=== PATIENT | female | born 1935 | race Caucasian/White ===

== ENCOUNTER 2019-01-21 07:05 | Inpatient (IN) | payer MEDICARE, OTHER ==
[2019-01-21] VITALS (22 sets, daily range): BP systolic 105–184; BP diastolic 45–97
[~2019-01-21] VITALS: Ht 167.6 cm; Wt 70.8 kg
[~2019-01-21 07:05] MED LIST: LISINOPRIL; NORCO 5-325 TA1 EACH PO
[2019-01-21 07:34] LABS: ABSOLUTE BASOPHILS 0.1 thou/uL (0.0-0.2); ABSOLUTE EOSINOPHILS 0.5 thou/uL (0.0-0.7); ABSOLUTE LYMPHOCYTES 1.5 thou/uL (0.8-5.3); ABSOLUTE MONOCYTES 0.6 thou/uL (0.0-1.2); ABSOLUTE NEUTROPHILS 4.9 thou/uL (1.6-8.1); BASOPHILS 1.1 %; EOSINOPHILS 6.1 %; HEMATOCRIT 43.2 % (37.0-47.0); HEMOGLOBIN 14.7 gm/dL (12.0-15.0); LYMPHOCYTES 20.2 %; MCH 29.7 pg (26.0-34.0); MCV 87.2 fL (80.0-100.0); MONOCYTES 7.8 %; MPV 8.5 fl. (7.2-11.1); NUCLEATED RBCS 0 /100WBC; PLATELET COUNT* 252 thou/uL (150-400); POLYS 64.8 %; RBC 4.96 mil/uL (4.20-5.00); RDW-CV 15.5 % (10.5-14.5); WBC 7.6 thou/uL (4.0-11.0)
[2019-01-21 07:45] LABS: ANION GAP 13 mmol/L (7-16); BUN 11 mg/dL (7-18); CALCIUM 8.9 mg/dL (8.5-10.1); CHLORIDE 103 mmol/L (98-107); CO2 24 mmol/L (21-32); CREATININE 0.9 mg/dL (0.6-1.3); GLUCOSE 104 mg/dL (70-99); SODIUM 140 mmol/L (136-145)
[2019-01-21 07:49] LABS: ALBUMIN 3.9 g/dL (3.4-5.0); ALKALINE PHOSPHATASE 116 U/L (46-116); CHOLESTEROL 288 mg/dL (<200); HDL CHOLESTEROL 68 mg/dL (>40); LDL CHOLESTEROL 185 mg/dL (<100); SGOT 38 U/L (15-37); SGPT 28 U/L (30-65); TC:HDL 4.2 Ratio (Not establshd); TOTAL BILIRUBIN 0.5 mg/dL (<0.1-1.0); TOTAL PROTEIN 7.3 g/dL (6.4-8.2); TRIGLYCERIDE 175 mg/dL (<150); VLDL 35 mg/dL (<40)
[2019-01-21 07:50] LABS: SERUM ASSESSMENT Clear
[2019-01-21 07:55] LABS: APTT 23.2 Seconds (25.0-31.3)
[2019-01-21 08:13] LABS: CK-MB MASS 8.9 ng/mL (<0.5-3.6)
--- NOTE | 2019-01-21 13:36 | EKG ---
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 01/21/19 1335 0711 0 Joshua Chery MD, FACC /EPI
--- NOTE | 2019-01-21 13:38 | EKG ---
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 01/21/19 1337 1144 1144 Joshua Chery MD, FACC /EPI
--- NOTE | 2019-01-21 15:06 | CARD ---
[address] [address] CARDIAC CATH REPORT Name: KOBE KRAUSE Room: [address] IN ..#: [id number] Admission: 01/21/19 Attend Phys: Nacho Jimenez MD Discharge: Date of : 33 Report #: [id number] THIS REPORT FOR: //name// APPROVED REPORT Study performed: 01/21/2019 07:23:02 Patient Details Patient Status: In-Patient Room #: The patient is a 83 year-old female Event Personnel Joshua Chery Floor Layer Helper, Jason Johnson Administrative Support Assoc, Sergio Pop MACHINE FANCY STITCHER Scrub, Emma Pathak RTR Scrub, Allyson Gonzalez RTR Monitor, Deloris English RN Typewriter Operator Automatic Procedures Performed Art Access - R femoral artery* Left Heart Cath w/or w/o Coronaries [id number] [facility] [address] w/wo Plasty Single LAD 124998 Hemostasis w/ Angioseal , PTCA with Balloon Angioplasty Indication Abnormal ECG, STEMI , Chest pain Risk Factors Hypercholesterolemia Admission/Lab Medications/Medications given during procedure Glycoprotein IllbIlla Inhibitors, Heparin Unfract., Plavix PO 600 mg, Aggrastat Unknown 6.7 ml, Plavix PO 600 mg, Heparin IV 6000 units Procedure Narrative The patient was brought emergently to the Cardiac Catheterization Laboratory and was prepped and draped in a sterile manner. The right femoral was infiltrated with 2% Lidocaine subcutaneous anesthesia. A 6fr Ultimum Sheath sheath was inserted into the right femoral artery. Coronary angiography was performed using coronary diagnostic catheters. The right coronary system was accessed and visualized with a 6F JR4 catheter. The left coronary system was accessed and visualized with a 6F JL4 catheter. The left ventricle was accessed and visualized with a 6F PIGTAIL catheter. Left ventricular/Aortic Valve gradient assessed via catheter pullback. Left ventriculogram was performed in HAWKINS projection. Closure device was deployed with a 6 [place] [address] CARDIAC CATH REPORT Name: JIMIKOBE Room: [address] IN [facility]#: [id number] Admission: 01/21/19 Attend Phys: Nacho Jimenez MD Discharge: Date of : 33 Report #: [id number] Fr Angioseal STS 6Fr. The patient tolerated the procedure well and there were no complications associated with the procedure. There was no hematoma. PROCEDURE START TIME 08:09/ STOP TIME 09:04. Intraoperative Conscious Sedation NO SEDATION. Fluoro Time: 7.3 minutes Dose: DAP 87777 cGycm2 1272 mGy Contrast Type and Amount: Visipaque 150 ml Coronary Angiography The patient's coronary anatomy is right dominant. Diagnostic Cath Left Main Normal and bifurcates into the LAD and circumflex complex coronary artery. LAD 80% proximal narrowing. Totally occluded in the midportion. Diagonal 1 70% proximal narrowing. Circumflex Normal in the proximal mid and distal portion. OM1 90% stenosis proximally and a moderate size branch. OM2 Mildly plaqued proximally. Right Coronary 40% narrowed proximal. 20% narrowed distally. R PDA Normal in appearance. RPLV Normal in appearance. Left Ventriculography The left ventricle is normal in size with decreased contractility. The left ventricular ejection fraction is estimated to be 40-45%. Left ventricular wall motion abnormalities are present. There is 1+ mitral insufficiency. severe hypokinesis noted of the apex Hemodynamics The aortic pressure is 183/75 mmHg with a mean of 119 mmHg. The left ventricular pressure is 162/10 mmHg with a mean of mmHg. The left ventricular end diastolic pressure is 25 mmHg. There was no gradient across the aortic valve upon pullback. Pullback from the left ventricle to the aorta revealed no gradient across the aortic valve. PCI Technique Lesion Anticoagulation was achieved with Heparin. bolus of iv aggrastat given Percutaneous coronary [place] [address] CARDIAC CATH REPORT Name: KOBE KRAUSE Room: [address] IN [facility]#: [id number] Admission: 01/21/19 Attend Phys: Nacho Jimenez MD Discharge: Date of : 33 Report #: [id number] left anterior descending artery segment. The lesion stenosis prior to intervention was 100% with LINETTE 0 flow. A 6F XB LAD 3.5 Guide Catheter was used to engage the LCA ostium. A IG: BMW 190cm Interventional Guidewire was used to cross the lesion. BALLOON DILATION A Balloon catheter Trek RX 2.5 X 8 was inserted and inflated up to 7.00atm for 19seconds. Repeat angiography revealed the following post-dilatation results: 70% stenosis. Additional Inflation: 5.00atm for 17seconds. Additional Inflation: 9.00atm for 29seconds. After reperfusion of the mid lad, a 90% stenosis was noted of the apical lad STENT DEPLOYMENT A drug-eluting stent Jose Rafael RX Stent 2.25 x 18 mm was inserted and inflated up to 7.00atm for 20seconds. Repeat angiography revealed the following post-stent deployment results: 0% stenosis. Additional Inflation: 8.00atm for 20seconds. Final angiography reveals 0 % stenosis with LINETTE 3 flow. PCI Technique Lesion 2 Percutaneous Coronary Intervention was performed on the distal left anterior descending artery segment. Percutaneous coronary intervention was performed on the distal left anterior descending artery segment. The lesion stenosis prior to intervention was 90% with LINETTE 0 flow. A xblad3.5 Guide Catheter was used to engage the lm ostium. A bmw Interventional Guidewire was used to cross the lesion. Balloon Dilation A Balloon catheter 2.5 x 8 mm was inserted and inflated up to 6atm for 19seconds. Repeat angiography revealed the following post-dilatation results: 60% stenosis. Stent Deployment A drug-eluting stent 2.0 x 12 mm was inserted and inflated up to 8atm for 19seconds. Repeat angiography revealed the following post-stent deployment results: 0% stenosis. Final angiography reveals 0 % stenosis with LINETTE 3 flow. Conclusion 1. 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 2. Mildly elevated left ventricular end-diastolic pressure. [address] [address] CARDIAC CATH REPORT Name: KOBE KRAUSE Room: [address] IN Kimberlee.R.#: [id number] Admission: 01/21/19 Attend Phys: Nacho Jimenez MD Discharge: Date of : 33 Report #: [id number] 3. Mildly decreased left ventricular systolic function with distal anterior and anteroapical hypokinesis. 4. successful placement of 2 drug eluting stents in the mid and distal lad Recommendations Cardiac Rehabilitation Referral Aggressive Medical Therapy Medications Administered Clopidogrel Diagnostic Cath Approved by: Joshua Chery MD Date/Time: <ELECTRONICALLY SIGNED> By: Jason Johnson MD, FACC 01/21/19 1506 1506 1506Daveronica Johnson MD, FACC /INF
--- NOTE | 2019-01-21 17:33 | NUR ---
PATIENT TOLERATING TUBE FEEDING AND TRACH. TRANSFERED OKAYED WITH DR BUSTOS ONLY WEANING TRIALS RECOMENDED. SURGERY DR BEAR OKAYED TRANSFER NO FURTHER NEED FOR SERVICES. DR GARCÍA DISCHARGE ORDERS IN TRANSFER PACKET. PATIENTS ANGIE NOTIFIED OF TRANSFER GIVEN ADRESS AND PHONE NUMBER OF [facility] REPORT CALLED TO JOURDAN DESIR AT [facility] ICU.
--- NOTE | 2019-01-21 18:27 | NUR ---
PATIENT ADMITTED FROM SALESPERSON TERRAZZO TILES EARLIER UP AFTER 6 HOURS CO NAUSEA DIURPHORETIC. EKG DONE NO CHANGE. CALLED TO DR WAGNER EARLIER TROP OF GREATER THAN 200 CALLED. NO NEW ORDERS AT THAT TIME.
[2019-01-22] VITALS (11 sets, daily range): BP systolic 105–145; BP diastolic 31–56
--- NOTE | 2019-01-22 04:52 | NUR ---
ASSUMED CARE AT 1900H, ON ROOM AIR TOLERATED. PT SLEPT AFTER DOSE OF MELATONIN AND BENADRYL. NO CHEST PAIN AND BLEEDING NOTED. CONTINUE MONITORING AND TOWARDS GOAL.
[2019-01-22 04:56] LABS: ABSOLUTE EOSINOPHILS 0.4 thou/uL (0.0-0.7); ABSOLUTE LYMPHOCYTES 1.8 thou/uL (0.8-5.3); ABSOLUTE MONOCYTES 0.9 thou/uL (0.0-1.2); ABSOLUTE NEUTROPHILS 4.9 thou/uL (1.6-8.1); BASOPHILS 0.4 %; EOSINOPHILS 5.1 %; HEMATOCRIT 37.3 % (37.0-47.0); MCH 29.2 pg (26.0-34.0); MCHC 33.5 g/dL (28.0-37.0); MCV 87.1 fL (80.0-100.0); MONOCYTES 11.2 %; MPV 8.2 fl. (7.2-11.1); NUCLEATED RBCS 0 /100WBC; PLATELET COUNT* 213 thou/uL (150-400); POLYS 61.3 %; RBC 4.28 mil/uL (4.20-5.00); RDW-CV 15.2 % (10.5-14.5)
[2019-01-22 04:57] LABS: CALCIUM 8.6 mg/dL (8.5-10.1); CREATININE 0.8 mg/dL (0.6-1.3); POTASSIUM 3.9 mmol/L (3.5-5.1)
[2019-01-22 05:02] LABS: HEMOGLOBIN 12.5 gm/dL (12.0-15.0)
[2019-01-22 05:09] LABS: TROPONIN-I LEVEL 24.24 ng/mL (<0.06)
[2019-01-22] MEDS ORDERED: PRINIVIL5 MG PO (07:15)
[2019-01-22] MEDS ORDERED: NITROGLYCERIN0.4 MG SUBLING (07:15)
[2019-01-22] MEDS ORDERED: CARVEDILOL3.125 MG PO (07:15)
[2019-01-22] MEDS ORDERED: CLOPIDOGREL75 MG PO (07:15)
[2019-01-22] MEDS ORDERED: ASPIR 8181 MG PO (07:15)
[2019-01-22] MEDS ORDERED: LIPITOR80 MG PO (07:15)
--- NOTE | 2019-01-22 11:24 | EKG ---
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: : 1935 Requested By: Jason Johnson Order Number: [id number] Glenn MD: Jason Johnson Measurements Intervals [place] Rate: 83 P: 50 NM: 143 QRS: 34 QRSD: 92 T: 174 QT: 473 QTc: 556 Interpretive Statements Sinus rhythm Abnrm T, probable ischemia, anterolateral lds Minimal ST elevation, anterior leads Prolonged QT interval Compared to ECG 01/21/2019 11:44:20 ST (T wave) deviation now present Prolonged QT interval now present Possible ischemia still present Electronically Signed On 01-22-2019 11:24:17 CDT by Jason Johnson [email or web address] <ELECTRONICALLY SIGNED> By: Jason Johnson MD, FACC 01/22/19 1124 1642 1642 Jason Johnson MD, [facility] /EPI
--- NOTE | 2019-01-22 11:41 | EKG ---
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1935 Requested By: Jason Johnson Order Number: [id number] Reading MD: Jason Johnson Measurements Intervals [place] Rate: 79 P: 63 W[place]: 163 QRS: 13 QRSD: 89 T: 187 QT: 462 QTc: 530 Interpretive Statements Sinus rhythm Abnrm T, probable ischemia, anterolateral lds Prolonged QT interval Compared to ECG 01/21/2019 11:44:20 Possible ischemia still present Electronically Signed On 01-22-2019 11:41:41 CDT by Jason Johnson [email or web address] <ELECTRONICALLY SIGNED> By: Jason Johnson MD, [facility] 01/22/19 1141 0907 0907 Jason Johnson MD, [facility] /EPI
--- NOTE | 2019-01-22 14:15 | CON ---
[address] [address] CONSULTATION Name: KOBE KRAUSE Kika Room: [address] ADM IN M.R.#: [id number] Admission: 01/21/19 Attend Phys: Nacho Jimenez MD Discharge: Date of : 33 Report #: [id number] THIS REPORT FOR: //name// CC: Alphonse Fernandes DATE OF SERVICE: 01/21/2019 CARDIOLOGY CONSULTATION HISTORY OF PRESENT ILLNESS: The patient is an 83-year-old single white female who I was asked to see in the Emergency Room today after she complained of chest pain. The patient has no previous history of heart disease. In fact, she is on no chronic medications. She notes a couple of weeks ago, she had episode of chest pain that did last for a long period. She went to see her doctor, was told there was no evidence of significant problems. However, today, she awoke at 2:00 a.m. with pain in the left side of her chest and left arm. She felt short of breath, diaphoretic, and nauseated. It persisted throughout the night. Finally, at about 5:30 this morning, she had a friend to bring her to the Emergency Room. She was noted to have abnormal ECG. I was asked to see her on an emergent basis. She denied the pain being related to food or coughing. She has had no bleeding. She denies any recent fever. She does note shortness of breath with exertion, occasional skipped heartbeat, but no syncope. PAST MEDICAL HISTORY: She has had previous appendectomy, hysterectomy, cataract extraction. She has no history of hypertension, diabetes, or hyperlipidemia. She is on no medications. FAMILY HISTORY: Mother of heart attack. SOCIAL HISTORY: She is , lives in [place]. 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 No smoking or alcohol abuse. REVIEW OF SYSTEMS: She has had no history of stroke, asthma, peptic ulcer disease, liver disease, kidney disease, cancer, psychiatric illness, chronic skin condition. PHYSICAL EXAMINATION: GENERAL: Elderly female who is lying in bed. She appeared in no distress. VITAL SIGNS: She had a blood pressure of 170/90, pulse is 90. HEENT: She was anicteric. Conjunctivae are pink. Mucous membranes moist. NECK: Veins nondistended. No carotid bruits. CHEST: Clear to auscultation. CARDIOVASCULAR: Regular rate and rhythm, [place] [address] CONSULTATION Name: KOBE KRAUSE Room: [address]#: [id number] Admission: 01/21/19 Attend Phys: Nacho Jimenez MD Discharge: Date of : 33 Report #: [id number] ABDOMEN: Soft. EXTREMITIES: Had no edema. Dorsalis pedis pulse cannot be palpated. SKIN: Cool and dry. NEUROLOGIC: Nonfocal. LABORATORY DATA: ECG showed a sinus rhythm, poor R-wave progression. There is ST segment elevation up to 3 mm in lead V2, V3, and V4, but no reciprocal changes. IMPRESSION AND RECOMMENDATIONS: 1. Possible acute coronary syndrome. Recommend urgent cardiac catheterization. 2. Hypertension. <ELECTRONICALLY SIGNED> By: Jason Johnson MD, FACC 01/22/19 1415 0755 0825Daveronica Johnson MD, FACC /nt
--- NOTE | 2019-01-22 15:41 | NUR ---
MET PT IN ROOM/INTRODUCED SELF AND SERVICES. PT INDEPENDENT WITH [employer] FAMILY AND COMMUNITY SUPPPORTS IN PLACE. NO HISTORY OF IN-HOME SUPPORT PER PT. 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 GRANDSON INTERACTS WITH PATIENT DAILY AND IS HER PRIMARY SUPPORT PERSON. SHE IS ESTRANGED WITH HER DAUGHTER. NO NEEDS FOR DISCHARGE IDENTIFIED AT THIS TIME.
--- NOTE | 2019-01-22 17:27 | NUR ---
PATIENT TRANSFERED TO [facility] NO RESULTS FROM LAXITIVE. DENIES CP OR SOA. PT SEEN BY CARDIAC REHAB. REPORT GIVEN TO DEJON.
--- NOTE | 2019-01-22 17:45 | NUR ---
PATIENT TRANSFER VIA WC TO 233 REPORT GIVEN PRIOR TO TRANSFER SETTLED IN ORIENTED TO AND CALL LIGHT DENIES PAIN
[2019-01-23] VITALS (7 sets, daily range): BP systolic 119–155; BP diastolic 41–70
--- NOTE | 2019-01-23 13:16 | NUR ---
PT A&O X4. VSS. DISCHARGE EDUCATION GIVEN. IV CANNULA'S DC'd. PT LEFT THE UNIT AT 1200 WITH HER GRAND DAUGHTER.
== END 2019-01-23 12:02 | disposition home or self-care (01) | DRG 246 ==
LOC: M.ERS 07:05 → M.CL 07:05 → M.TBA-CV 07:54 → M.ICU 07:54 → M.2W 01-22 17:46
PROVIDERS: Emergency Medicine; Internal Medicine Cardiovascular Disease; ADMIT Internal Medicine
DX: I21.09 ST elevation (STEMI) myocardial infarction involving other coronary artery of anterior wall (principal); I50.21 Acute systolic (congestive) heart failure; I42.9 Cardiomyopathy, unspecified; S50.11XA Contusion of right forearm, initial encounter; E78.00 Pure hypercholesterolemia, unspecified; I11.0 Hypertensive heart disease with heart failure; Z90.710 Acquired absence of both cervix and uterus; Z98.42 Cataract extraction status, left eye; Z98.41 Cataract extraction status, right eye; Z90.49 Acquired absence of other specified parts of digestive tract; Z87.81 Personal history of (healed) traumatic fracture; Z82.49 Family history of ischemic heart disease and other diseases of the circulatory system; X58.XXXA Exposure to other specified factors, initial encounter; Y93.89 Activity, other specified; Y92.89 Other specified places as the place of occurrence of the external cause; Y99.8 Other external cause status; Z79.82 Long term (current) use of aspirin; Z79.899 Other long term (current) drug therapy

== ENCOUNTER 2019-02-07 07:19 | Observation (INO) | payer MEDICARE, OTHER ==
[~2019-02-07] VITALS: Ht 170.2 cm; Wt 65.8 kg
[2019-02-07] VITALS (12 sets, daily range): BP systolic 109–143; BP diastolic 46–80
--- NOTE | ~2019-02-07 | H ---
[address] [address] HISTORY AND PHYSICAL Name: KOBE KRAUSE Room: [address] Alexandre Vega#: [id number] Admission: 02/07/19 Attend Phys: Neal Ardon MD, Discharge: 02/08/19 Date of : 33 Report #: [id number] THIS REPORT FOR: //name// Please refer to the History and Physical performed in the physician's office. By: 0654Medical Records Staff GARCIA /LONG
[~2019-02-07 07:19] MED LIST changes: +ASPIR 8181 MG PO; +CARVEDILOL3.125 MG PO; +CLOPIDOGREL75 MG PO; +LIPITOR80 MG PO; +NITROGLYCERIN0.4 MG SUBLING; +PRINIVIL5 MG PO
[2019-02-07 08:20] LABS: HEMATOCRIT 40.5 % (37.0-47.0); HEMOGLOBIN 13.6 gm/dL (12.0-15.0); MCH 29.3 pg (26.0-34.0); MCHC 33.5 g/dL (28.0-37.0); MCV 87.6 fL (80.0-100.0); MPV 8.3 fl. (7.2-11.1); RBC 4.63 mil/uL (4.20-5.00); RDW-CV 15.6 % (10.5-14.5); WBC 7.7 thou/uL (4.0-11.0)
[2019-02-07 08:28] LABS: ANION GAP 11 mmol/L (7-16); BUN 15 mg/dL (7-18); CHLORIDE 103 mmol/L (98-107); CO2 25 mmol/L (21-32); GLUCOSE 95 mg/dL (70-99); POTASSIUM 4.1 mmol/L (3.5-5.1); SODIUM 139 mmol/L (136-145)
[2019-02-07 08:33] LABS: ALBUMIN 3.7 g/dL (3.4-5.0); ALKALINE PHOSPHATASE 127 U/L (46-116); CHOLESTEROL 119 mg/dL (<200); HDL CHOLESTEROL 50 mg/dL (>40); LDL CHOLESTEROL 40 mg/dL (<100); SGOT 50 U/L (15-37); SGPT 46 U/L (30-65); TC:HDL 2.4 Ratio (Not establshd); TOTAL BILIRUBIN 0.7 mg/dL (<0.1-1.0); TOTAL PROTEIN 7.2 g/dL (6.4-8.2); TRIGLYCERIDE 147 mg/dL (<150); VLDL 29 mg/dL (<40)
[2019-02-07 08:36] LABS: SERUM ASSESSMENT Clear
[2019-02-07 08:49] LABS: APTT 22.9 Seconds (25.0-31.3); PROTIME 10.7 Seconds (9.20-11.50)
--- NOTE | 2019-02-07 14:37 | EKG ---
[place] [address] ELECTROCARDIOGRAM REPORT Name: KOBE KRAUSE Room: [address] M.R.#: [id number] Admission: 02/07/19 Attend Phys: Neal Ardon MD, Discharge: Date of : 33 Report #: [id number] THIS REPORT FOR: //name// [facility] Test Date: 2019-02-07 Test Time: 08:40:00 Pat Name: KOBE KRAUSE Department: Room: 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1935 Requested By: eNal Ardon Order Number: [id number] Glenn MD: Neal Ardon Measurements Intervals [place] Rate: 73 P: 32 MN: 150 QRS: 0 QRSD: 93 T: QT: 431 QTc: 475 Interpretive Statements Sinus rhythm Abnrm T, probable ischemia, anterolateral lds Compared to ECG 01/22/2019 09:07:47 Prolonged QT interval no longer present Possible ischemia still present Electronically Signed On 02-07-2019 14:37:09 CDT by Neal Ardon [email or web address] <ELECTRONICALLY SIGNED> By: Neal Ardon MD, [facility] 02/07/19 1437 0840 0840 Neal Ardon MD, [facility] /EPI
--- NOTE | 2019-02-07 14:40 | EKG ---
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1935 Requested By: Neal Ardon Order Number: [id number] Glenn MD: Neal Ardon Measurements Intervals [place] Rate: 82 P: 47 NC: 159 QRS: 12 QRSD: 94 T: QT: 440 QTc: 514 Interpretive Statements Sinus rhythm Abnormal T, consider ischemia, anterior leads Prolonged QT interval Compared to ECG 01/22/2019 09:07:47 T-wave abnormality now present Possible ischemia still present Electronically Signed On 02-07-2019 14:40:20 CDT by Neal Ardon [email or web address] <ELECTRONICALLY SIGNED> By: Neal Ardon MD, [facility] 02/07/19 1440 1336 1336 Neal Ardon MD, [facility] /EPI
--- NOTE | 2019-02-07 18:04 | NUR ---
RECEIVED PT FROM STAGE TECHNICIAN AT 1330. GET SITUATED TO ROOM. TELE IN PLACED TRACING SR ON MONITOR. AOX4, BEDREST, O2 SAT 90'S 1L NC. R GROIN HEMATOMA NOTED. PT HAS EPISODE OF BLEEDING ON THE CATH SITE. NOTIFIED. VS MONITOR. IV ACCESS INTACT, NS RUNNING. ADMISSION DONE. I AGREE WITH LANETTE ASSESSMENT. CALL LIGHT WITHIN REACH. HOURLY ROUNDING. WILL CONTINUE TO MONITOR.
[2019-02-08 04:00] VITALS: BP 134/53
[2019-02-08 05:04] LABS: HEMATOCRIT 33.3 % (37.0-47.0); MCH 29.5 pg (26.0-34.0); MCHC 33.4 g/dL (28.0-37.0); MCV 88.4 fL (80.0-100.0); MPV 8.9 fl. (7.2-11.1); RBC 3.77 mil/uL (4.20-5.00); RDW-CV 15.9 % (10.5-14.5); WBC 6.8 thou/uL (4.0-11.0)
[2019-02-08 05:13] LABS: HEMOGLOBIN 11.1 gm/dL (12.0-15.0)
[2019-02-08 06:13] LABS: POTASSIUM 3.8 mmol/L (3.5-5.1)
[2019-02-08 06:46] LABS: CALCIUM 7.8 mg/dL (8.5-10.1); CREATININE 0.9 mg/dL (0.6-1.3); TOTAL BILIRUBIN 0.5 mg/dL (<0.1-1.0)
[2019-02-08 06:59] LABS: TROPONIN-I LEVEL 4.1 ng/mL (<0.06)
--- NOTE | 2019-02-08 07:43 | NUR ---
PT CARE ASSUMED AT 1930. SAT MAINTAINED IN O2. CALL LIGHT WITHIN REACH AND BED IN LOW POSITION. C/O PAIN, MEDICATION PER EMAR. NO BLEEDING OVERNIGHT. BRUISING PRESENT AT CATH SITE. HOURLY ROUNDING DONE FOR PT SAFETY.
[2019-02-08 08:00] VITALS: BP 115/48
--- NOTE | 2019-02-08 10:40 | CARD ---
[address] [address] CARDIAC CATH REPORT Name: KOBE KRAUSE Room: [address] Alexandre Vega#: [id number] Admission: 02/07/19 Attend Phys: Neal Ardon MD, Discharge: Date of : 31 Report #: [id number] THIS REPORT FOR: //name// ADDENDUM APPROVED REPORT Study performed: 02/07/2019 07:54:43 Patient Details Patient Status: Out-Patient Room #: Event Personnel Dr. Ardon,Dredgemaster; Rosemary Sanches RN tile roofer; DYLAN Cody scrub; Allyson Gonzalez RTR monitor Procedures Performed Left heart catheterization selective coronary angiography atherectomy with stenting of the proximal LAD stenting of the mid to distal LAD and stenting of the first marginal branch of the circumflex. Rt femoral artery access. Hemostasis with angioseal. Indication Unstable angina Risk Factors Hypercholesterolemia, Hypertension Admission/Lab Medications/Medications given during procedure Heparin Unfract., Aspirin 162 mg PO, Ticagrelor 180 mg PO, Heparin 13, 000 units IV Procedure Narrative The patient was brought electively to the Cardiac Catheterization Laboratory and was prepped and draped in a sterile manner. The right femoral was infiltrated with 2% Lidocaine subcutaneous anesthesia. A 6 Guinean Isleton sheath was inserted into the right femoral artery. Coronary angiography was performed using coronary diagnostic catheters. The left coronary system was accessed and visualized with a 6f JL4 catheter. The left ventricle was accessed and visualized with a 6f pigtail catheter. Left ventricular/Aortic Valve gradient assessed via catheter pullback. Pre-demployment femoral angiogram was performed . Closure device was deployed with a 6 Fr Angioseal. [place] [address] CARDIAC CATH REPORT Name: KOBE KRAUSE [address]: [address]#: [id number] Admission: 02/07/19 Attend Phys: Neal Ardon MD, Discharge: Date of : 33 Report #: [id number] Intraoperative Conscious Sedation Sedation start time: 09:51 Case end Time: 11:25 Fentanyl 100.0 mcg Versed 2.0 mg Fluoro Time: 28 minutes Dose: DAP [id number] cGycm2 2614 mGy Contrast Type and Amount: 400 ml visipaque Diagnostic Cath Left Main 0% narrowing LAD 90% tubular calcified proximal LAD stenosis with 75% mid to distal LAD narrowing with widely patent mid and distal LAD stents Circumflex 90% stenosis of first marginal branch of the circumflex with 40% second marginal narrowing Right Coronary 60% tubular narrowing of the proximal portion of the dominant right coronary artery by recent cineangiogram Hemodynamics The aortic pressure is 130/70 mmHg with a mean of 82 mmHg. The left ventricular end diastolic pressure is 20 mmHg. There was no gradient across the aortic valve upon pullback. PCI Technique Lesion Anticoagulation was achieved with Heparin. Patient was preloaded with Heparin 7000 units. Percutaneous coronary intervention was performed on the proximal LAD. The lesion stenosis prior to intervention was 90% with LINETTE 3 flow. A 6 Guinean XB LAD 3.5 Guide Catheter was used to engage the left ostium. A 014 PW Flex ViperWire Interventional Guidewire was used to cross the lesion. BALLOON DILATION CSI Diamondback 1.25 Athrectomy janet. Multiple runs of the orbital atherectomy device across the heavily calcified proximal LAD lesion at 80,000 rpm's. NC TREK RX 2.5/12 balloon inflated MID LAD 14 sil,9 seconds; 16 sil,9 seconds. STENT DEPLOYMENT A drug-eluting stent 2.5 x 26 orsiro was inserted and inflated up to 12atm for 15seconds. 2.25/15 RX ORSIRO LUDY STENT MID TO DISTAL LAD. INFLATED 9 SIL, 7 SECONDS; 10 SIL, 5 SECONDS. 2.5/26 RX ORSIRO LUDY STENT PROXIMAL LAD. 12 SIL, 8 SECONDS; 12 SIL, 5 SECONDS. 2.0/8 RX ORSIRO LUDY STENT 1ST OM ARTERY. INFLATED 10 SIL,6 SECONDS; 12 SIL, 7 [place] [address] CARDIAC CATH REPORT Name: KOBE KRAUSE Kika Room: [address] Alexandre M.RFelix#: [id number] Admission: 02/07/19 Attend Phys: Neal Ardon MD, Discharge: Date of : 33 Report #: [id number] POST STENT DEPLOYMENT BALLOON DILATION A Balloon catheter 2.75 x 12 NC trek was inserted and inflated up to 12-18atm for seconds. Additional Inflation: 10atm for 8seconds. Additional Inflation: 12atm for 3seconds. 2.0/8 MINI TREK RX BALLOON. INFLATED 10 SIL,7 SECONDS;10 SIL, 3 SECONDS. Final angiography reveals 0 % stenosis with LINETTE 153 flow. PCI Technique Lesion 2 Percutaneous Coronary Intervention was performed on the mid LAD. The lesion stenosis prior to intervention was 75% with LINETTE 3 flow. Stent Deployment A drug-eluting stent 2.5 x 15 orsiro was inserted and inflated up to 12atm for 15seconds. Final angiography reveals 0 % stenosis with LINETTE 3 flow. PCI Technique Lesion 3 Percutaneous Coronary Intervention was performed on the first marginal branch of the circumflex. The lesion stenosis prior to intervention was 90% with LINETTE 3 flow. Balloon Dilation A Balloon catheter 2.0 x 8 mm trek was inserted and inflated up to 10atm for 15seconds. Stent Deployment A drug-eluting stent 2.0 x 8 mm newton was inserted and inflated up to 12atm for 10seconds. Final angiography reveals 0 % stenosis with LINETTE 3 flow. Conclusion #1 significant multivessel coronary artery disease characterized by the following: A 90% heavily calcified tubular proximal LAD stenosis with 75% mid to distal LAD narrowing with widely patent mid and distal LAD stents B nondominant circumflex with 90% first marginal narrowing and 40% [place] [address] CARDIAC CATH REPORT Name: KOBE KRAUSE Room: [address] Alexandre Vega#: [id number] Admission: 02/07/19 Attend Phys: Neal Ardon MD, Discharge: Date of : 33 Report #: [id number] C moderate size dominant right coronary artery with 60% tubular proximal narrowing #2 moderate elevation of left ventricular end-diastolic pressure at rest #3 successful atherectomy with stenting of the proximal LAD with 0% residual narrowing following deployment of a drug-eluting stent #4 successful angioplasty with stenting of the 75% mid to distal LAD narrowing with 0% residual narrowing #5 successful percutaneous coronary intervention with deployment of drug-eluting stent at site of 90% first marginal stenosis with 0% residual narrowing Recommendations Cardiac Risk Reduction Program Aggressive Medical Therapy Medications Administered Aspirin (any) Ticagrelor Diagnostic Cath Approved by: Neal Ardon MD Date/Time: 02/07/2019 15:27:49 <ELECTRONICALLY SIGNED> By: Neal Ardon MD, [facility] 02/08/19 1039 1039 1039Neal Ardon MD, FACC /INF
[2019-02-08] MEDS ORDERED: ATENOLOL 25 MG25 M1 PO (10:47)
[2019-02-08 10:51] VITALS: BP 131/80
[2019-02-08 13:27] VITALS: BP 142/56
--- NOTE | 2019-02-08 15:47 | NUR ---
ASSUMED PT CARE AT 0730, FULL ASSESMENT DONE CHARTED. PT A/O X4, C/O SOME SORENESS TO RIGHT GROIN, GROIN IS BRUISED, TENDER, SMALL AMOUNT OF FIRM TISSUE, NO BLEEDING NOTED, COVERED WITH BANDAID. PTS VSS, SR ON THE MONITOR. DISCHARGE ORDERS RECEIVED, PT AMBULATED IN [place] SEVERAL TIMES TODAY. REVIEWED DISCHARGE ORDERS WITH GRANDDTR AND PT, BOTH VERBALIZED UNDERSTANDING. PT LEFT AT APPROX 1545
--- NOTE | 2019-02-10 12:03 | EKG ---
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 Sawyer: 1887 : 1935 Requested By: Neal Ardon Order Number: [id number] Reading MD: Neal Ardon Measurements Intervals [place] Rate: 82 P: 81 LA: 155 QRS: 4 QRSD: 89 T: 202 QT: 428 QTc: 500 Interpretive Statements Sinus rhythm Atrial premature complex Nonspecific T abnormalities, diffuse leads Borderline prolonged QT interval Compared to ECG 02/07/2019 13:36:38 Atrial premature complex(es) now present Possible ischemia no longer present T-wave abnormality still present Electronically Signed On 02-10-2019 12:03:42 COMPRESSED GAS EQUIPMENT MECHANIC by Neal Ardon [email or web address] <ELECTRONICALLY SIGNED> By: Neal Ardon MD, [facility] 02/10/19 1203 0914 0914 Neal Ardon MD, [facility] /EPI
--- NOTE | 2019-02-10 14:49 | D ---
[address] [address] DISCHARGE SUMMARY Name: KOBE KRAUSE Room: [address] Alexandre Vega#: [id number] Admission: 02/07/19 Attend Phys: Neal Ardon MD, Discharge: 02/08/19 Date of : 33 Report #: [id number] THIS REPORT FOR: //name// CC: Alphonse Ardon DATE OF SERVICE: 02/08/2019 FINAL DISCHARGE DIAGNOSES: 1. Unstable angina. 2. Status post recent anteroapical myocardial infarction. 3. Status post atherectomy with stenting of the left anterior descending and stenting of the first marginal branch of the circumflex on 02/07/2019. 4. Cardiomyopathy. 5. Hypertension. 6. Hyperlipidemia. PROCEDURES: On 02/07/2019 -- left heart catheterization, selective coronary atriotomy, atherectomy with stenting of the proximal LAD, stenting of the mid to distal LAD, and stenting of the first marginal branch of the circumflex. The patient is a pleasant 83-year-old female with recent anteroapical infarction interrupted by stenting of the distal LAD and she was noted to have significant residual proximal LAD narrowing as well as 90% first marginal narrowing and 60% tubular proximal right coronary stenosis. She continued to experience angina, this was noted in the office. In this context, she was admitted for recatheterization on 02/07/2019, which revealed widely patent distal LAD stent with 75% narrowing between the mid and distal LAD and 90% diffusely calcified proximal LAD stenosis with 90% first marginal narrowing and 60% proximal right coronary stenosis. Given this data, I performed atherectomy with stenting of the proximal LAD deployed one drug-eluting stent in the mid to distal LAD and deployed one drug-eluting stent in the first marginal branch of the circumflex with 0% residual narrowings at the three respective sites following stent deployment, LINETTE 3 flow of the distal vessel. After atherectomy, there was a mild increase in troponin to 4.10. There was satisfactory hemostasis of the right femoral site with minimal ecchymosis without hematoma. LABORATORY DATA: On 02/08, revealed sodium 140, potassium 3.8, BUN 9, creatinine 0.9, glucose 95. White blood cell count 6800, hemoglobin 11.1, platelets 196,000. [place] [address] DISCHARGE SUMMARY Name: KOBE KRAUSE Room: [address] Alexandre Vega#: [id number] Admission: 02/07/19 Attend Phys: Neal Ardon MD, Discharge: 02/08/19 Date of : 33 Report #: [id number] The patient ambulated in the hallways. After removal of her Stapleton catheter, was discharged to home on 02/08/2019 on the following medications: Aspirin 81 mg daily, atorvastatin 80 mg at bedtime, carvedilol 3.125 mg b.i.d., lisinopril 5 mg daily, ticagrelor 90 mg b.i.d. and p.r.n. sublingual nitroglycerin. She is scheduled to return to see my nurse practitioner, Elizaebth Keen in 7-10 days and myself in approximately 6 weeks. Therefore, the patient is discharged to home in stable condition on the aforementioned medications with followup as described above. <ELECTRONICALLY SIGNED> By: Neal Ardon MD, [facility] 02/10/19 1449 1010 [id number] Ardon MD, FAC /nt
== END 2019-02-08 15:45 | disposition home or self-care (01) ==
LOC: M.CL 07:19 → M.TBA-CV 12:05 → M.2W 13:41
PROVIDERS: ADMIT Internal Medicine
DX: I25.110 Atherosclerotic heart disease of native coronary artery with unstable angina pectoris (principal); I42.9 Cardiomyopathy, unspecified; I10 Essential (primary) hypertension; E78.5 Hyperlipidemia, unspecified; Z79.82 Long term (current) use of aspirin; Z79.899 Other long term (current) drug therapy

== ENCOUNTER 2019-02-10 11:11 | Inpatient (IN) | payer MEDICARE, OTHER ==
[~2019-02-10] VITALS: Ht 170.2 cm; Wt 67.7 kg
[~2019-02-10 11:11] MED LIST changes: +ATENOLOL 25 MG25 M1 PO
[2019-02-10 11:17] VITALS: BP 92/44
[2019-02-10 11:48] LABS: ABSOLUTE BASOPHILS 0.1 thou/uL (0.0-0.2); ABSOLUTE EOSINOPHILS 0.5 thou/uL (0.0-0.7); ABSOLUTE LYMPHOCYTES 0.3 thou/uL (0.8-5.3); ABSOLUTE MONOCYTES 0.3 thou/uL (0.0-1.2); BASOPHILS 0.7 %; EOSINOPHILS 6.5 %; HEMATOCRIT 34.6 % (37.0-47.0); HEMOGLOBIN 11.8 gm/dL (12.0-15.0); LYMPHOCYTES 4.1 %; MCH 29.6 pg (26.0-34.0); MCHC 34.1 g/dL (28.0-37.0); MCV 86.7 fL (80.0-100.0); MONOCYTES 3.8 %; MPV 8.9 fl. (7.2-11.1); NUCLEATED RBCS 0 /100WBC; PLATELET COUNT* 192 thou/uL (150-400); POLYS 84.9 %; RDW-CV 15.6 % (10.5-14.5); WBC 8.2 thou/uL (4.0-11.0)
[2019-02-10 11:56] LABS: APTT 24.4 Seconds (25.0-31.3); CALCIUM 8.4 mg/dL (8.5-10.1); CREATININE 1.3 mg/dL (0.6-1.3); INR 1.1; POTASSIUM 3.8 mmol/L (3.5-5.1); PROTIME 11.6 Seconds (9.20-11.50)
[2019-02-10 12:07] LABS: ALBUMIN 3.2 g/dL (3.4-5.0); TOTAL BILIRUBIN 1.5 mg/dL (<0.1-1.0); TOTAL PROTEIN 6.6 g/dL (6.4-8.2)
[2019-02-10 14:33] LABS: URINE BILIRUBIN NEGATIVE (Negative); URINE BLOOD NEGATIVE (Negative); URINE CLARITY CLEAR; URINE COLOR YELLOW; URINE GLUCOSE-RANDOM NEGATIVE (Negative); URINE KETONES NEGATIVE (Negative); URINE LEUKOCYTES-REFLEX NEGATIVE (Negative); URINE NITRITE-REFLEX NEGATIVE (Negative); URINE PROTEIN NEGATIVE (Negative); URINE UROBILINOGEN 0.2 E.U./dl (0.2-1.0)
[2019-02-10 15:48] VITALS: BP 112/57
--- NOTE | 2019-02-10 17:06 | 2DMMODE ---
[place] [address] 2 D/M-MODE ECHOCARDIOGRAM Name: KOBE KRAUSE Kika Room: [place] [address] ADM IN [facility]#: [id number] Admission: 02/10/19 Attend Phys: Karlene Munson, Discharge: Date of : 33 Date of Service: 02/10/19 1706 Report #: [id number] THIS REPORT FOR: //name// APPROVED REPORT Study performed: 02/10/2019 13:50:41 EXAM: Comprehensive 2D, Doppler, and color-flow Echocardiogram Patient Location: In-Patient Room #: er Status: routine BSA: 1.76 HR: 68 bpm BP: 111/57 mmHg Rhythm: NSR Other Information Study Quality: Good Indications Atrial Fibrillation 2D Dimensions IVSd: 10.61 (7-11mm) LVOT Diam: 20.72 (18-24mm) LVDd: 49.51 mm PWd: 9.45 (7-11mm) Ascending Ao: 29.65 (22-36mm) LVDs: 32.20 (25-40mm) Aortic Root: 28.52 mm Volumes Left Atrial Volume (Systole) LA ESV Index: 48.30 mL/m2 Aortic Valve AoV Peak Miki.: 1.43 m/s AO Peak Gr.: 8.14 mmHg LVOT Max P.05 mmHg AO Mean Gr.: 4.06 mmHg LVOT Mean P.49 mmHg LVOT Max V: 0.87 m/s AO V2 VTI: 28.18 cm LVOT Mean V: 0.56 m/s TURNER (VTI): 2.10 cm2 LVOT V1 VTI: 17.55 cm AI Ingham: 2.64 m/s2 AI PHT: 448.69 ms Mitral Valve E/A Ratio: 0.98 [place] [address] 2 D/M-MODE ECHOCARDIOGRAM Name: KOBE KRAUSE Room: [address] IN [facility].#: [id number] Admission: 02/10/19 Attend Phys: Karlene Munson, Discharge: Date of : 33 Date of Service: 02/10/19 1706 Report #: [id number] MV Decel. Time: 130.53 ms MV E Max Miki.: 0.67 m/s MV PHT: 37.85 ms MVA (PHT): 5.81 cm2 TDI E/Lateral E': 5.15 E/Medial E': 11.17 Medial E' Miki.: 0.06 m/s Lateral E' Miki.: 0.13 m/s Pulmonary Valve PV Peak Miki.: 0.70 m/s PV Peak Gr.: 1.96 mmHg Tricuspid Valve RAP Estimate: 5.00 mmHg TR Peak Gr.: 21.22 mmHg RVSP: 26.00 mmHg PA Pressure: 26.00 mmHg Left Ventricle The left ventricle is normal size. There is left ventricular systolic dyssynergy consistent with underlying bundle branch block. There is normal left ventricular wall thickness. Left ventricular systolic function is normal. LVEF is 55-60%. Transmitral Doppler flow pattern suggests impaired LV relaxation. Right Ventricle Right ventricle is mildly dilated. The right ventricular systolic function is normal. Atria Left atrium is severely dilated. Right atrium is moderately dilated. Aortic Valve Mild aortic valve sclerosis. Moderate aortic regurgitation. There is no aortic valvular stenosis. Mitral Valve The mitral valve is normal in structure. Mild mitral regurgitation. No evidence of mitral valve stenosis. Tricuspid Valve The tricuspid valve is normal in structure. Moderate tricuspid regurgitation. No pulmonary hypertension[place] [address] 2 D/M-MODE ECHOCARDIOGRAM Name: KOBE KRAUSE Room: [address] IN [facility]#: [id number] Admission: 02/10/19 Attend Phys: Karlene Munson, Discharge: Date of : 33 Date of Service: 02/10/19 170 Report #: [id number] Pulmonic valve is grossly normal in structure. There is no pulmonic valvular regurgitation. Great Vessels The aortic root is normal in size. IVC is normal in size and collapses >50% with inspiration. Pericardium There is no pericardial effusion. <Conclusion> The left ventricle is normal size. There is normal left ventricular wall thickness. Left ventricular systolic function is normal. LVEF is 55-60%. Transmitral Doppler flow pattern suggests impaired LV relaxation. There is left ventricular systolic dyssynergy consistent with underlying bundle branch block. Right ventricle is mildly dilated. Left atrium is severely dilated. Right atrium is moderately dilated. Mild aortic valve sclerosis. Moderate aortic regurgitation. Moderate tricuspid regurgitation. No pulmonary hypertension. IVC is normal in size and collapses >50% with inspiration. <ELECTRONICALLY SIGNED> By: Joshua Chery MD, FACC 02/10/191705 05 05 Joshua Chery MD, FACC /INF
[2019-02-10 17:14] LABS: INFLUENZA A ANTIGEN Negative (Negative); INFLUENZA B ANTIGEN Negative (Negative)
[2019-02-10 17:30] VITALS: BP 112/65
[2019-02-10 17:45] VITALS: BP 130/56
--- NOTE | 2019-02-10 18:26 | NUR ---
RECEIEVED REPORT FROM THANG SEGURA IN ER OF EXPECTED ADMISSION AT 1718- DX: A-FIB WITH RVR- PT ARRIVED TO ROOM 223 VIA CART, ASSIST X1 TO BED-GRANDSON AT BED SIDE AT TIME OF ADMISSION- SKYLIGHTS ASSEMBLER PLACED ORDERED, TRACING SR- PT A&O X4- CONTINENT OF B/B- ASSIST X1 WITH TRANSFERS-LCTA/DIMINSHED IN BASES; RESP EVEN AND UN-LABORED- PT REPORTS NON-PRODUCTIVE COUGH- VS 97.6 20 130/56 70 93% ON RA- ABD SOFT/ROUND/NON-TENDER, BS X4 QUADS HYPOACTIVE- LAST BM REPORTED X3 DAYS AGO, BUT REPORTS TO NOT BE EATING WELL R/T DECREASED APPETITE- IV NOTED TO LEFT AC INTACT, IV CARDIZEM INFUSSING 5ML/HR-PT REPORTED AND NOTED TO HAVE CONVERTED TO SR PRIOR TO ADMISSION IN ER- RIGHT GROIN NOTED WITH BRUISING AND SMALL KNOT TO SIGHT R/T RECENT CATH- PT NOTED WITH GLASSES IN PLACE, AN REPOTED UPPER AND LOWER PARTIAL PLATE- SKIN C/D/I-FLU SWAB NOTED TO BE NEGATIVE AT TIME OF ADMISSION- PT DENIES ANY C/O PAIN/DISCOMFORT- CALL LIGHT AND PERSONAL BELONGINGS WITH IN REACH- HOURLY ROUNDS IN PLACE R/T SAFETY/NEEDS- ALL NEEDS MET AT THIS TIME-WCTM
[2019-02-10 20:00] VITALS: BP 115/45
[2019-02-11] VITALS: BP 123/45
[2019-02-11 05:00] VITALS: BP 113/48
[2019-02-11 05:47] LABS: HEMATOCRIT 30.4 % (37.0-47.0); HEMOGLOBIN 10.4 gm/dL (12.0-15.0); MCH 29.8 pg (26.0-34.0); MCHC 34.1 g/dL (28.0-37.0); MCV 87.3 fL (80.0-100.0); MPV 8.8 fl. (7.2-11.1); RBC 3.48 mil/uL (4.20-5.00); WBC 6.5 thou/uL (4.0-11.0)
[2019-02-11 05:55] LABS: ALBUMIN 2.7 g/dL (3.4-5.0); CALCIUM 7.9 mg/dL (8.5-10.1); CREATININE 0.9 mg/dL (0.6-1.3); POTASSIUM 3.7 mmol/L (3.5-5.1); TOTAL BILIRUBIN 1.7 mg/dL (<0.1-1.0); TOTAL PROTEIN 5.7 g/dL (6.4-8.2)
--- NOTE | 2019-02-11 06:00 | NUR ---
ASSUMED PATIENT CARE AT 1900. ASSESSMENT COMPLETED CHARTED. VSS. PATIENT IS SR/ST ON THE MONITOR. HOURLY ROUNDING IN PLACE FOR PATIENT SAFETY. CLWR.
[2019-02-11 06:16] LABS: TROPONIN-I LEVEL 0.76 ng/mL (<0.06)
[2019-02-11 08:00] VITALS: BP 118/51
[2019-02-11 12:00] VITALS: BP 113/49
--- NOTE | 2019-02-11 14:45 | NUR ---
ASSUMED PT CARE AT 0800, AOX4, UP WITH ASSIST, O2 SAT 90'S RA. TRACING SR ON TELE. PT DENIES PAIN. VSS, AM ASSESSMENT CHARTED MEDS GIVEN PER MAR, CALL LIGHT WITHIN REACH, WILL CONTINUE TO MONITOR.
--- NOTE | 2019-02-11 16:54 | NUR ---
Pt working with therapy this morning. Pt lives at home alone. PT recommending inpt rehab; SW discussed with Dr Munson and inpt rehab consulted for possible dc plan whenever pt is medically ready to dc. Pt has support in grandson. Pt has RW. SW to continue to follow.
--- NOTE | 2019-02-11 17:13 | EKG ---
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 Teacher Assistant: [place] : 1935 Requested By: Robb Chappell Order Number: [id number] MD: Joshua Chery Measurements Intervals [place] Rate: 147 P: MS: QRS: 17 QRSD: 90 T: 177 QT: 291 QTc: 456 Interpretive Statements Atrial fibrillation with rapid V-rate Repolarization abnormality, prob rate related Compared to ECG 02/08/2019 09:14:24 Early repolarization now present Sinus rhythm no longer present Electronically Signed On 02-11-2019 17:12:47 BILLING SPECIALIST by Joshua Chery [email or web address] <ELECTRONICALLY SIGNED> By: Joshua Chery MD, FAC 02/11/19 1712 1127 1127 Joshua Chery MD, [facility] /EPI
--- NOTE | 2019-02-11 17:18 | EKG ---
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: JEri : 1935 Requested By: Robb Chappell Order Number: [id number] Reading MD: Joshua Chery Measurements Intervals [place] Rate: 80 P: [place]: QRS: 6 QRSD: 90 T: 149 QT: 415 QTc: 479 Interpretive Statements Atrial fibrillation Borderline low voltage, extremity leads Abnrm T, consider ischemia, anterolateral lds Compared to ECG 02/08/2019 09:14:24 Possible ischemia now present Sinus rhythm no longer present Atrial premature complex(es) no longer present T-wave abnormality no longer present Electronically Signed On 02-11-2019 17:18:09 B2B SALES REPRESENTATIVE by Joshua Chery [email or web address] <ELECTRONICALLY SIGNED> By: Joshua Chery MD, FACC 02/11/19 1718 32 32 Joshua Chery MD, FAC /EPI
[2019-02-11 17:22] VITALS: BP 108/54
[2019-02-11 20:00] VITALS: BP 126/50
[2019-02-12 00:37] VITALS: BP 108/41
[2019-02-12 04:20] VITALS: BP 115/55
--- NOTE | 2019-02-12 05:44 | NUR ---
ASSUMED PATIENT CARE AT 1900. ASSESSMENT COMPLETED CHARTED. VSS. PATIENT IS SR/AFIB ON THE MONITOR. PATIENT HAD A PRODUCTIVE COUGH WITH AIDA-COLORED SPUTUM. PATIENT HAD AN ELEVATED TEMPERATURE, NURSING INTERVENTIONS INITIATED AND EFFECTIVE. HOURLY ROUNDING IN PLACE FOR PATIENT SAFETY. CLWR.
[2019-02-12 07:12] LABS: HEPATITIS B SURFACE AG Negative (Negative)
[2019-02-12 07:20] VITALS: BP 116/44
[2019-02-12 12:08] VITALS: BP 103/40
--- NOTE | 2019-02-12 15:59 | NUR ---
ASSUMED PT CARE REPORT RECEIVED FROM NURSE PT IS AOX4, ON RA. VSS. NO COMPLAINT. DENIES PAIN. RECEIVED AM MEDICINE. ECHO DONE. PHYSICAL THERAPY WORKED IN ROOM WITH PATIENT. CALL LIGHT AT REACH. FALL PRECAUTION IN PLACE WILL CONTINUE TO MONITOR
[2019-02-12 16:00] VITALS: BP 108/41
[2019-02-12 19:10] LABS: CMV IgM Abs <30.0 AU/mL (0.0-29.9); EBNA-1 IgG 18.2 U/mL (0.0-17.9); EBV VCA IgM <36.0 U/mL (0.0-35.9)
[2019-02-12 20:00] VITALS: BP 124/47
[2019-02-13] VITALS (8 sets, daily range): BP systolic 98–117; BP diastolic 35–48
[2019-02-13 05:41] LABS: ALBUMIN 2.3 g/dL (3.4-5.0); CALCIUM 7.9 mg/dL (8.5-10.1); CREATININE 0.8 mg/dL (0.6-1.3); MAGNESIUM 2.2 mg/dL (1.8-2.4); TOTAL BILIRUBIN 5.2 mg/dL (<0.1-1.0); TOTAL PROTEIN 5.4 g/dL (6.4-8.2)
[2019-02-13 05:42] LABS: POTASSIUM 4.1 mmol/L (3.5-5.1)
--- NOTE | 2019-02-13 06:28 | NUR ---
ASSUMED PATIENT CARE AT 1900. ASSESSMENT COMPLETED CHARTED. VSS. PATIENT IS SINUS RHYTHM ON THE MONITOR WITH PACS. HOURLY ROUNDING IN PLACE FOR PATIENT SAFETY. CLWR.
[2019-02-13 07:22] LABS: HEMATOCRIT 31.1 % (37.0-47.0); HEMOGLOBIN 10.7 gm/dL (12.0-15.0); MCH 29.7 pg (26.0-34.0); MCHC 34.6 g/dL (28.0-37.0); MPV 9.6 fl. (7.2-11.1); RBC 3.61 mil/uL (4.20-5.00); RDW-CV 16.2 % (10.5-14.5)
--- NOTE | 2019-02-13 16:29 | NUR ---
assumed pt care report received from nurse pt is aox4 , vss, on ra. o2 saturation is 95% denies pain. new iv placed in left hand s.l. pt skin is jaundice colored. infectious disease consulted for elevated lfts. ct of abdomen done. therapeutic case manager notified of patient's request to sign a dpoa paper here at the hospital. call light at reach. fall precaution in place. will continue to monitor pt
--- NOTE | 2019-02-13 18:08 | NUR ---
PT HEART RYTHM CHANGED TO AFIB RVR AT 1710 ON THIS SHIFT. HEART RATE IN 140S 150. EKG PERFORMED. PLACED IN CHART. BRIM POUNCER MACHINE OPERATOR PAGED. AWAITING FOR CALL. PT IS ASYMPTOMATIC. O2 2 L NC ADMINISTERED PER PROTOCOL
--- NOTE | 2019-02-13 18:48 | NUR ---
CARDIBRENTON DRIP ORDER RECEIVED FROM DR PARTIDA. ORDER FAXED TO PHARMACY
--- NOTE | 2019-02-13 19:09 | NUR ---
10 MG BOLUS OF CARDIZEM GIVEN ORDERED. CARDIZEM DRIP STARTED AT 5 CC PER HOUR.
--- NOTE | 2019-02-13 23:49 | NUR ---
ASSUMED CARE OF PT AT 1900. PT IS ALERT AND ORIENTED. VSS. PERRLA. NO COMPLAINTS OF PAIN. PT CONVERTED TO SINUS RYTHM AT ABOUT 2200. PT IS SLEEPING QUIETLY IN BED. RESPIRATIONS ARE EVEN AND NONLABORED. WILL CONTINUE TO MONITOR PT.
[2019-02-14 04:30] VITALS: BP 119/47
[2019-02-14 05:01] LABS: HEMATOCRIT 30.1 % (37.0-47.0); HEMOGLOBIN 10.2 gm/dL (12.0-15.0); MCH 29.1 pg (26.0-34.0); MCHC 33.8 g/dL (28.0-37.0); MCV 86.3 fL (80.0-100.0); MPV 10.2 fl. (7.2-11.1); NUCLEATED RBCS 0 /100WBC; PLATELET COUNT* 182 thou/uL (150-400); RBC 3.49 mil/uL (4.20-5.00); RDW-CV 16.4 % (10.5-14.5); WBC 7.5 thou/uL (4.0-11.0)
[2019-02-14 05:38] LABS: ALBUMIN 2.3 g/dL (3.4-5.0); CREATININE 0.9 mg/dL (0.6-1.3); POTASSIUM 3.4 mmol/L (3.5-5.1); TOTAL BILIRUBIN 6.2 mg/dL (<0.1-1.0); TOTAL PROTEIN 5.3 g/dL (6.4-8.2)
[2019-02-14 06:20] LABS: ABSOLUTE BASOPHILS 0.1 thou/uL (0.0-0.2); ABSOLUTE EOSINOPHILS 0.7 thou/uL (0.0-0.7); ABSOLUTE LYMPHOCYTES 0.7 thou/uL (0.8-5.3); ABSOLUTE MONOCYTES 0.5 thou/uL (0.0-1.2); ABSOLUTE NEUTROPHILS 5.6 thou/uL (1.6-8.1); ANISOCYTOSIS 1+; PLATELET ESTIMATE ADEQUATE; POIKILOCYTOSIS 1+
--- NOTE | 2019-02-14 07:17 | CON ---
[address] [address] CONSULTATION Name: KOBE KRAUSE Room: [address] IN M.R.#: [id number] Admission: 02/10/19 Attend Phys: Karlene Munson MD Discharge: Date of : 31 Report #: [id number] THIS REPORT FOR: //name// CC: Alphonse Munson DATE OF SERVICE: 02/13/2019 INFECTIOUS DISEASE CONSULTATION ATTENDING PHYSICIAN: Dr. Karlene Munson. REASON FOR EVALUATION: Febrile illness, suspected infection with hepatitis. HISTORY OF PRESENT ILLNESS: Chart reviewed, patient examined. This is an 83-year-old woman with known vasculopathy, history of atherosclerotic coronary artery disease, who apparently had been living independently. Over the course of less than a month, she has been hospitalized 3 times. Initially, had acute myocardial infarction, readmitted with unstable angina, underwent stenting of the left anterior descending artery. She was discharged, was seen in the outpatient cardiology clinic, noted to have some temperature elevation. She was referred to the Emergency Room, was also noted to have nausea, cough, and diaphoresis. Evaluation of the operative site was otherwise unrevealing. She was admitted and underwent imaging of her chest, which was unremarkable. Urinalysis was unrevealing as well. She was found to have elevated liver function tests actually continued to go up. She is now jaundiced with a bilirubin of 5.2. She was empirically started on ceftriaxone. She states she does feel better. She does have a degree of dementia, I think, she is uncertain of some of the details. ALLERGIES: None known. MEDICATIONS: Include carvedilol, alprazolam, aspirin, famotidine, enoxaparin, ticagrelor, ceftriaxone, ondansetron, diphenhydramine, nitroglycerin, atorvastatin. PAST MEDICAL HISTORY: As noted above, history of hypertension. SOCIAL HISTORY: Nonsmoker, no ethanol, no illicit drug use. FAMILY HISTORY: Noncontributory. REVIEW OF SYSTEMS: As noted above, otherwise unremarkable. PHYSICAL EXAMINATION: [place] [address] CONSULTATION Name: KOBE KRAUSE Room: [address]#: [id number] Admission: 02/10/19 Attend Phys: Karlene Munson MD Discharge: Date of : 33 Report #: [id number] GENERAL: She appears chronically ill, mildly undernourished. She is pleasant, cooperative, mild distress. VITAL SIGNS: Temperature 97.8 correlated with recent temperature overnight of 100.2, pulse 79, respirations 22 and blood pressure 98/44. SKIN: Warm. She is jaundiced. HEENT: Normocephalic. Extraocular muscles intact. NECK: Supple. LUNGS: Somewhat diminished, otherwise clear breath sounds. HEART: Regular, may have soft systolic murmur. ABDOMEN: Soft, nontender, nondistended. There is no apparent organomegaly. RECTAL: Deferred. LABORATORY DATA: Initial CBC: White count of 8.2, H and H 11.8 and 34.6, platelets 192, has lymphocytopenia of 300. Lactic acid was 2.4 initially, repeat was 1.8. Blood cultures collected are sterile thus far. Initial electrolytes; sodium 138, potassium 3.8, chloride 104, bicarbonate is 21, anion gap of 13, BUN and creatinine 12 and 1.3, SGOT of 193. Total bilirubin of 1.5, ALT of 157. Estimated GFR of 32, albumin 3.2, total protein 6.6. Followup similar labs; sodium 133, potassium 4.1, chloride 102, bicarbonate is 22, anion gap of 9, BUN and creatinine 14 and 0.8. AST is now elevated at 260, ALT of 218, alkaline phosphatase of 247 and total bilirubin of 5.2. Antibodies to CMV notes previous exposure, antibodies to EBV notes past exposure as well. Chest x-ray, no acute process. Hepatitis panel was negative. Prealbumin 11.4. [place] test was negative. Troponin was elevated at 0.84. Influenza antigen was negative. Echo, no evidence of valvular vegetation. Ultrasound of the right groin showed no abnormalities. ASSESSMENT AND PLAN: Febrile illness, she seems to have improved from that standpoint. She is unable to give any additional history. It is interesting the labs are worsening, certainly raises question of adverse drug effect with cholestasis. Given the high alkaline phosphatase and bilirubin, we will discontinue the ceftriaxone. We will do CT of the abdomen and pelvis to better define the biliary tract situation. She is not acutely ill. Consider stopping any medicine that could be implicated as regards to an adverse drug effect with cholestasis. <ELECTRONICALLY SIGNED> By: Krishna Castillo MD 02/14/19 0717 1553 [id number] Castillo MD /nt
[2019-02-14 08:00] VITALS: BP 110/68
--- NOTE | 2019-02-14 09:18 | NUR ---
ASSUMED CARE OF PT THIS AM AROUND 0715- CONTRACT NEGOTIATION MANAGER IN PLACE ORDERED, TRACING SR- UPON ASSESSMENT PT NOTED TO BE RESTING IN BED- PT A&O X4- CONTINENT OF BOWEL AND BLADDER- AX1 WITH TRANSFERS- LCTA, DYSPNEA NOTED ON EXERTION- VSS, O2 SAT 96% ON 2L VIA NC- ABD SOFT/ROUND/TENDER, BS X 4 QUADS- POOR PO INTAKE NOTED- PT UP TO BED SIDE CHAIR THIS AM WITH BREAKFAST- SURGERY CONSULTED PER ID THIS AM R/T CT ABD RESULTS- SURGERY HERE TO ASSESS WITH ORDERS NOTED FOR ABD US FOR FURTHER EVAL OF GALL BLADDER- NEW ORDERED NOTED FOR ZOYSN THIS AM WITH 1ST DOSE GIVEN PRESCIBED- PT DENIES ANY C/O PAIN/DISCOMFORT AT THIS TIME- CALL LIGHT AND PERSONAL BELONGINGS WITH IN REACH- HOURLY ROUNDS IN PLACE R/T SAFETY/NEEDS- ALL NEEDS MET AT THIS TIME-WCTM
[2019-02-14 12:00] VITALS: BP 100/47
--- NOTE | 2019-02-14 15:47 | EKG ---
[place] [address] ELECTROCARDIOGRAM REPORT Name: KOBE KRAUSE Room: [address] ADM IN M.R.#: [id number] Admission: 02/10/19 Attend Phys: Karlene Munson MD Discharge: Date of : 33 Report #: [id number] THIS REPORT FOR: //name// [facility] Test Date: 2019-02-13 Test Time: 18:04:03 Pat Name: KOBE KRAUSE Department: Room: [address] Gender: F Hospital Supervisor: MEKA : 1935 Requested By: Jason Johnson Order Number: [id number] MD: Neal Ardon Measurements Intervals [employer] Rate: 148 P: [place]: QRS: -16 QRSD: 97 T: 197 QT: 278 QTc: 437 Interpretive Statements Atrial fibrillation with rapid V-rate Inferior infarct, old Compared to ECG 02/10/2019 21:33:57 Myocardial infarct finding now present Electronically Signed On 02-14-2019 15:47:23 HAND SPRAY OPERATOR by Neal Ardon [email or web address] <ELECTRONICALLY SIGNED> By: Neal Ardon MD, [facility] 02/14/19 1547 1804 180 Neal Ardon MD, [facility] /EPI
[2019-02-14 15:49] VITALS: BP 152/65
[2019-02-14 16:12] VITALS: BP 105/41
--- NOTE | 2019-02-14 16:16 | NUR ---
PT CURRENTLY RESTING IN BED, EYES CLOSED- PT NOTED TO BE UP TO BED SIDE CHAIR WITH MEALS, TOLERATING WELL- DONOR SERVICES TEAM LEADER IN PLACE ORDERED, TRACING SR- O2 NOTED TO BE TITRATED TO RA THIS SHIFT WITH O2 SAT NOTED TO BE 94% ON RA-IV NOTED TO LEFT HAND INTACT AND SL- IV ABT ZOYSN STARTED AND GIVEN THIS SHIFT PRESCIBED R/T INTRA ABD INFECTION- SURGERY HERE TO ASSESS WITH FURTHER RECOMMENDATIONS TO BE MADE AFTER MRSP- COREG DECREASED TO 3.125MG BID THIS SHIFT PER CARDIOLOGY WITH PO CARDIZEM 120MG DAILY STARTED AND GIVEN PRESCRIBED- GI CONSULTED FOR HYPERBILI THIS SHIFT WELL- POOR PO INTAKE CONTINUES- CALL LIGHT AND PERSONAL BELONGINGS WITH IN REACH- PT MAKES NEEDS KNOWN- ALL NEEDS MET AT THIS TIME-WCTM
[2019-02-14 19:45] VITALS: BP 114/48
--- NOTE | 2019-02-14 23:14 | NUR ---
ASSUMED CARE OF PT AT 1900. PT IS ALERT AND ORIENTED. VSS. PERRLA. NO COMPLAINTS OF PAIN. PT IS ON ROOM AIR. PT IS IN SINUS RYTHM ON THE TELEMETRY. PT IS RESTING COMFORTABLY IN BED. RESPIRATIONS ARE EVEN AND NONLABORED. WILL CONTINUE TO MONITOR PT.
[2019-02-15] VITALS (7 sets, daily range): BP systolic 107–161; BP diastolic 38–82
[2019-02-15 04:33] LABS: HEMATOCRIT 29.9 % (37.0-47.0); HEMOGLOBIN 10.1 gm/dL (12.0-15.0); MCHC 33.9 g/dL (28.0-37.0); MCV 85.4 fL (80.0-100.0); NUCLEATED RBCS 0 /100WBC; PLATELET COUNT* 210 thou/uL (150-400); RDW-CV 15.9 % (10.5-14.5); WBC 8.6 thou/uL (4.0-11.0)
[2019-02-15 05:02] LABS: ALBUMIN 2.5 g/dL (3.4-5.0); CREATININE 1.1 mg/dL (0.6-1.3); POTASSIUM 3.8 mmol/L (3.5-5.1); TOTAL PROTEIN 5.6 g/dL (6.4-8.2)
[2019-02-15 06:30] LABS: ABSOLUTE EOSINOPHILS 1.6 thou/uL (0.0-0.7); ABSOLUTE LYMPHOCYTES 0.5 thou/uL (0.8-5.3); ABSOLUTE MONOCYTES 0.3 thou/uL (0.0-1.2); ABSOLUTE NEUTROPHILS 6.1 thou/uL (1.6-8.1); PLATELET ESTIMATE ADEQUATE
--- NOTE | 2019-02-15 09:30 | NUR ---
ASSUMED CARE OF PT THIS AM AROUND 714- CCO & PRESIDENT IN PLACE ORDERED, TRACING SR- UPON ASSESSMENT PT NOTED TO BE RESTING IN BED SIDE RECLINER- PT A&O X4-PT REPORTS TO BE TIRED AND NOT FEELING WELL THIS AM R/T TO NOT SLEEPING WELL LAST NIGHT-ASSIST X1 WITH TRANSFERS- CONTINENT OF B/B- LCTA, DYSPNEA NOTED ON EXERTION- NON-PRODUCATIVE COUGHT NOTED- VSS, O2 SAT 97% ON RA- ABD SOFT/ROUND/NON-TENDER, BS X4 QUADS- PT REPORTED TO HAVE HAD BM ON PRIOR SHIFT- IV NOTED TO LEFT HAND INTACT AND SL- POOR PO INTAKE CONTINUES- CALL LIGHT AND PERSONAL BELONGINGS WITH IN REACH- HOURLY ROUNDS IN PLACE R/T SAFETY/NEEDS- PT MAKES NEEDS KNOWN- ALL NEEDS MET AT THIS TIME-WCTM
[2019-02-16] VITALS: BP 116/56
[2019-02-16 04:00] VITALS: BP 113/54
[2019-02-16 05:59] LABS: HEMATOCRIT 30.5 % (37.0-47.0); HEMOGLOBIN 10.2 gm/dL (12.0-15.0); MCH 28.7 pg (26.0-34.0); MCHC 33.5 g/dL (28.0-37.0); MCV 85.6 fL (80.0-100.0); MPV 10.3 fl. (7.2-11.1); NUCLEATED RBCS 0 /100WBC; PLATELET COUNT* 254 thou/uL (150-400); RBC 3.56 mil/uL (4.20-5.00); RDW-CV 16.5 % (10.5-14.5); WBC 10.7 thou/uL (4.0-11.0)
[2019-02-16 06:06] LABS: ALBUMIN 2.5 g/dL (3.4-5.0); CALCIUM 8.1 mg/dL (8.5-10.1); POTASSIUM 3.4 mmol/L (3.5-5.1); TOTAL BILIRUBIN 3.3 mg/dL (<0.1-1.0); TOTAL PROTEIN 5.7 g/dL (6.4-8.2)
[2019-02-16 07:24] LABS: ABSOLUTE EOSINOPHILS 2.1 thou/uL (0.0-0.7); ABSOLUTE LYMPHOCYTES 0.7 thou/uL (0.8-5.3); ABSOLUTE MONOCYTES 0.4 thou/uL (0.0-1.2); ABSOLUTE NEUTROPHILS 7.4 thou/uL (1.6-8.1); PLATELET ESTIMATE ADEQUATE
--- NOTE | 2019-02-16 07:56 | NUR ---
PT CARE ASSUMED AT 1930. SAT MAINTAINED IN RA. PT IS IMPULSIVE, EDUCATION GIVEN NEEDS REINFORCEMENT. CONFUSED AT TIMES. CALL LIGHT WITHIN REACH AND BED IN LOW POSITION. DENIES PAIN AND SOB. HOURLY ROUNDING DONE FOR PT SAFETY.
[2019-02-16 08:04] VITALS: BP 142/67
--- NOTE | 2019-02-16 09:35 | NUR ---
ASSUMED CARE OF PT THIS AM AROUND 714-CERTIFIED PROCEDURAL CODER IN PLACE ORDERED, TRACING SR- UPON ASSESSMENT PT NOTED TO BE RESTING IN BED- PT A&O X4, FORGETFULL AT TIMES- STRESS INCONTINENTS NOTED, CONTINENT OF BM- LCTA, DIMINISHED IN BASES- DYSPNEA NOTED ON [id number] COUGH NOTED-VSS, O2 SAT 92% ON RA- ABD SOFT/ROUND/NON-TENDER, BS X4 QUADS- LAST BM REPORTED 02/15/19- IV NOTED TO LEFT HAND INTACT AND SL, IV ABT GIVEN PRESCIBED- POOR PO INTAKE CONTINUES- 2+ EDEMA NOTED TO BLE- PT DENIES ANY C/O PAIN/DISCOMFORT AT THIS TIME- CALL LIGHT AND PERSONAL BELONGINGS WITH IN REACH- HOURLY ROUNDS IN PLACE R/T SAFETY/NEEDS- ALL NEEDS MET AT THIS TIME-WCTM
[2019-02-16 11:40] VITALS: BP 119/51
[2019-02-16 15:37] VITALS: BP 117/55
[2019-02-16 19:50] VITALS: BP 118/50
[2019-02-17] VITALS: BP 120/47
[2019-02-17 04:00] VITALS: BP 116/46
[2019-02-17 04:37] LABS: HEMATOCRIT 29.1 % (37.0-47.0); HEMOGLOBIN 9.8 gm/dL (12.0-15.0); MCH 29.3 pg (26.0-34.0); MCHC 33.9 g/dL (28.0-37.0); MCV 86.7 fL (80.0-100.0); MPV 10.3 fl. (7.2-11.1); RBC 3.35 mil/uL (4.20-5.00); WBC 11.3 thou/uL (4.0-11.0)
[2019-02-17 05:02] LABS: ALBUMIN 2.3 g/dL (3.4-5.0); CALCIUM 7.9 mg/dL (8.5-10.1); CREATININE 0.9 mg/dL (0.6-1.3); POTASSIUM 3.7 mmol/L (3.5-5.1); TOTAL BILIRUBIN 2.7 mg/dL (<0.1-1.0); TOTAL PROTEIN 5.6 g/dL (6.4-8.2)
--- NOTE | 2019-02-17 05:42 | NUR ---
PT CARE ASSUMED AT 1930. SAT MAINTAINED IN RA. DENIES PAIN. SOB WITH EXERTION. C/O OF COUGH, MEDICATION GIVEN PER EMAR. CALL LIGHT WITHIN REACH AND BED IN LOW POSITION. HOURLY ROUNDING DONE FOR PT SAFETY.
[2019-02-17 07:00] VITALS: BP 116/51
--- NOTE | 2019-02-17 11:42 | NUR ---
CM contacted nuc med at [facility], plan for Pt to transfer to [facility] tomorrow for Hida scan, then return to [facility] tomorrow morning. [facility] wants Pt at Nuc Med tomorrow at 9am. Plan for ambulance to orange picking supervisor and transport tomorrow at 8am. Chart copied. Emtala form completed. Updated Pt's grandsonEyad.
[2019-02-17 12:01] VITALS: BP 119/57
--- NOTE | 2019-02-17 13:29 | NUR ---
Nutrition: Pt admitted with afib. Seen for LOS. NPO for Nuc Med in AM. Pt chart review, decreased appetite this past month. Wt: 151#. Alb 2.3, prealb 9.8, BG ok. RD will order Ensure Clear for added protein once diet advances after procedure tomorrow. Low risk. Will follow POC 02/22/19.
[2019-02-17 16:48] VITALS: BP 110/39
[2019-02-17 19:50] VITALS: BP 114/60
[2019-02-18] VITALS (7 sets, daily range): BP systolic 94–141; BP diastolic 46–74
--- NOTE | 2019-02-18 05:49 | NUR ---
PT CARE ASSUMED AT 1930. SAT MAINTAINED IN O2. ALERT AND ORIENTED X4 BUT FORGETFUL AT TIMES. PT FEELS SHE IS GETTING WEAKER. SOB WITH EXERTION. DENIES PAIN. CALL LIGHT WITHIN REACH AND BED IN LOW POSITION. HOURLY ROUNDING DONE FOR PT SAFETY.
--- NOTE | 2019-02-18 15:22 | EKG ---
[place] [address] ELECTROCARDIOGRAM REPORT Name: KOBE KRAUSE Room: [address] ADM IN M.R.#: [id number] Admission: 02/10/19 Attend Phys: Karlene Munson MD Discharge: Date of : 33 Report #: [id number] THIS REPORT FOR: //name// [facility] Test Date: 2019-02-18 Test Time: 14:54:05 Pat Name: KOBE KRAUSE Department: Room: [address] Gender: F Guard Captain: : 1935 Requested By: Holly Anne Order Number: [id number] Reading MD: Joshua Chery Measurements Intervals [place] Rate: 63 P: 111 MO: 148 QRS: 6 QRSD: 97 T: 102 QT: 440 QTc: 451 Interpretive Statements Sinus rhythm Low voltage, extremity leads Abnormal T, consider ischemia, anterior leads Compared to ECG 02/13/2019 18:04:03 Low QRS voltage now present T-wave abnormality now present Possible ischemia now present Atrial fibrillation no longer present Myocardial infarct finding no longer present Electronically Signed On 02-18-2019 15:22:22 CENTER CONSULTANT by Joshua Chery [email or web address] <ELECTRONICALLY SIGNED> By: Joshua Chery MD, FACC 02/18/19 1522 1454 1454 Joshua Chery MD, FAC /EPI
--- NOTE | 2019-02-18 19:44 | NUR ---
ASSUMED PT CARE AT 0730, PT TO TRANSFER TO [facility] THIS AM FOR HIDA SCAN. PT TAKEN BY AMBULANCE AT APPROX 0830 AND RETURNED AT APPROX 1500 BY AMBULANCE. PT DENIES PAIN, C/O BEING TIRED. VSS, SR ON THE MONITOR. PT ABLE TO EAT DINNER. MEDS GIVEN PER JUN. FALL PRECAUTIONS IN PLACE. PT DOES NOT ALWAYS USE CALL LIGHT FOR NEEDS, EDUCATED ON FALL PRECAUTIONS AND CALL LIGHT USE. PT VERBALIZED UNDERSTANDING. REPORT GIVEN TO BLANCA DESIR
[2019-02-19] VITALS (7 sets, daily range): BP systolic 125–141; BP diastolic 45–61
--- NOTE | 2019-02-19 06:42 | NUR ---
PT CARE ASSUMED AT 1930. SAT MAINTAINED IN O2. ALERT AND ORIENTED X4 BUT FORGETFUL. CALL LIGHT WITHIN REACH AND BED IN LOW POSITION. DENIES PAIN. SOB WITH EXERTION. HOURLY ROUNDING DONE FOR PT SAFETY.
[2019-02-19 07:26] LABS: ABSOLUTE EOSINOPHILS 1.9 thou/uL (0.0-0.7); ABSOLUTE LYMPHOCYTES 0.8 thou/uL (0.8-5.3); ABSOLUTE MONOCYTES 1.2 thou/uL (0.0-1.2); ABSOLUTE NEUTROPHILS 7.3 thou/uL (1.6-8.1); BASOPHILS 0.4 %; EOSINOPHILS 16.7 %; HEMATOCRIT 29.3 % (37.0-47.0); HEMOGLOBIN 9.8 gm/dL (12.0-15.0); LYMPHOCYTES 6.8 %; MCH 29.3 pg (26.0-34.0); MCHC 33.6 g/dL (28.0-37.0); MCV 87.3 fL (80.0-100.0); MONOCYTES 10.8 %; MPV 9.5 fl. (7.2-11.1); NUCLEATED RBCS 0 /100WBC; PLATELET COUNT* 302 thou/uL (150-400); POLYS 65.3 %; RBC 3.36 mil/uL (4.20-5.00); RDW-CV 16.8 % (10.5-14.5); WBC 11.2 thou/uL (4.0-11.0)
[2019-02-19 07:34] LABS: ALBUMIN 2.4 g/dL (3.4-5.0); CALCIUM 7.7 mg/dL (8.5-10.1); CREATININE 0.8 mg/dL (0.6-1.3); POTASSIUM 3.8 mmol/L (3.5-5.1); TOTAL BILIRUBIN 2.3 mg/dL (<0.1-1.0); TOTAL PROTEIN 5.8 g/dL (6.4-8.2)
--- NOTE | 2019-02-19 09:21 | NUR ---
ASSUMED CARE OF PT THIS AM AROUND 07- ROW BOSS IN PLACE ORDERED, TRACING SR- UPON ASSESSMENT PT NOTED TO BE RESTING IN BED- PT A&O X4, FORGETFULL- STRESS INCONTINENTS NOTED- AX1 WITH RW FOR TRANSFERS- LCTA, DIMINISHED IN BASES, DYSPNEA NOTED ON EXERTION- VSS, O2 SAT 94% ON 2L VIA NC- ABD SOFT/ROUND/NON-TENDER, BS X4 QUADS- LAST BM REPOTED 02/18/19- IV NOTED TO RIGHT WRIST INTACT AND SL-FAIR PO INTAKE NOTED THIS AM WITH BREAKFAST- PT UP WALKING HALLWAYS THIS AM WITH PT, TOLERATING WELL- CHEST X-RAY ORDERED PER CARDIO THIS AM- PT DENIES ANY C/O PAIN/DISCOMFORT AT THIS TIME- CALL LIGHT AND PERSONAL BELONGINGS WITH IN REACH- ALL NEEDS MET AT THIS TIME-WCTM
--- NOTE | 2019-02-19 09:56 | EKG ---
[place] [address] ELECTROCARDIOGRAM REPORT Name: KOBE KRAUSE Room: [address] ADM IN M.R.#: [id number] Admission: 02/10/19 Attend Phys: Karlene Munson MD Discharge: Date of : 33 Report #: [id number] THIS REPORT FOR: //name// [facility] Test Date: 2019-02-19 Test Time: 08:43:56 Pat Name: KOBE KRAUSE Department: Room: [address] Gender: F Balance Screwhead Polisher: : 1935 Requested By: Holly Anne Order Number: [id number] Reading MD: Jason Johnson Measurements Intervals [place] Rate: 69 P: 94 ID: 152 QRS: 16 QRSD: 96 T: 33 QT: 472 QTc: 506 Interpretive Statements Sinus rhythm Low voltage, extremity leads Nonspecific T abnormalities, anterior leads Prolonged QT interval Compared to ECG 02/18/2019 14:54:05 Prolonged QT interval now present T-wave abnormality still present Electronically Signed On 02-19-2019 9:56:19 TANNING SOLUTION MAKER by Jason Johnson [email or web address] <ELECTRONICALLY SIGNED> By: Jason Johnson MD, [facility] 02/19/19 0956 0843 0843 Jason Johnson MD, [facility] /EPI
--- NOTE | 2019-02-19 11:00 | NUR ---
CONTINUE TO FOLLOW. MET WITH PT, STATES FEELING IMPROVED. SURGERY PLANS NO INTERVENTION AT THIS TIME. PT STATES SHE IS STILL WEAK BUT BETTER. SHE STATED HER GRANDSON WORKS ON HER PROPERTY AND GRANDDTR CAN CHECK ON HER FREQUENTLY. PT IS AGREEABLE TO HOME WITH AND DECLINES SNF. SHE ASKED THAT CM CONTACT HER AMY/CHELLY RE: AGENCY [phone]. ANTICIPATE DC IN NEXT DAY OR SO.
--- NOTE | 2019-02-19 16:09 | NUR ---
REPORT RECEIVED FROM THANG OVALLES. THIS RN AGREES WITH PREVIOUS REAMING MACHINE OPERATOR. PT UP TO BATHROOM MULTIPLE TIMES THROUGHOUT AFTERNOON- UP WITH 1 ASSIST AND WALKER TO BATHROOM. PT HAD CXR TODAY-REFER TO RESULTS. PT ON RA SAT UPPER 90'S- OXYGEN NOT NEEDED. PT TO HAVE LABS IN AM. MEDICATIONS PER MAR. PT REPOSITIONS SELF WITH REMINDERS. HOURLY ROUNDING OBSERVED. BED IN LOW POSITION. CALL LIGHT WITHIN REACH. WILL CONTINUE PLAN OF CARE.
[2019-02-20] VITALS: BP 134/49
--- NOTE | 2019-02-20 03:21 | NUR ---
RECEIVED REPORT AND ASSUMED CARE AT 1900. VSS. CARDIAC MONITORING IN PLACE. PT DENIES COMPLAINTS OF PAIN. ASSESSMENT COMPLETED CHARTED. PT UP WITH ASSIST WITH WALKER. ON RA. BED LOCKED IN LOWEST POSITION, CALL LIGHT WITHIN REACH, BED ALARM ON.
[2019-02-20 04:00] VITALS: BP 128/66
[2019-02-20 05:00] LABS: HEMATOCRIT 32.2 % (37.0-47.0); HEMOGLOBIN 10.8 gm/dL (12.0-15.0); MCH 29.4 pg (26.0-34.0); MCHC 33.4 g/dL (28.0-37.0); MCV 87.9 fL (80.0-100.0); RBC 3.67 mil/uL (4.20-5.00); RDW-CV 17.3 % (10.5-14.5); WBC 9.8 thou/uL (4.0-11.0)
[2019-02-20 05:37] LABS: ALBUMIN 2.5 g/dL (3.4-5.0); CALCIUM 8.2 mg/dL (8.5-10.1); CREATININE 0.8 mg/dL (0.6-1.3); MAGNESIUM 2.2 mg/dL (1.8-2.4); POTASSIUM 3.2 mmol/L (3.5-5.1); TOTAL BILIRUBIN 2.1 mg/dL (<0.1-1.0); TOTAL PROTEIN 6.2 g/dL (6.4-8.2)
[2019-02-20 08:00] VITALS: BP 133/75
--- NOTE | 2019-02-20 11:09 | EKG ---
[place] [address] ELECTROCARDIOGRAM REPORT Name: KOBE KRAUSE Room: [address] ADM IN M.R.#: [id number] Admission: 02/10/19 Attend Phys: Karlene Munson MD Discharge: Date of : 33 Report #: [id number] THIS REPORT FOR: //name// [facility] Test Date: 2019-02-20 Test Time: 08:28:42 Pat Name: KOBE KRAUSE Department: Room: [address] Gender: F Debone Supervisor: : 1935 Requested By: Holly Anne Order Number: [id number] Reading MD: Jason Johnson Measurements Intervals [place] Rate: 133 P: [place]: QRS: 17 QRSD: 90 T: 143 QT: 359 QTc: 535 Interpretive Statements Atrial fibrillation Borderline low voltage, extremity leads Probable LVH with secondary repol abnrm Prolonged QT interval Compared to ECG 02/19/2019 08:43:56 Sinus rhythm no longer present T-wave abnormality no longer present Electronically Signed On 02-20-2019 11:09:49 INJECTION MOLDING MACHINE TENDER by Jason Johnson [email or web address] <ELECTRONICALLY SIGNED> By: Jason Johnson MD, FACC 02/20/19 1109 0828 0828 Jason Johnson MD, FAC /EPI
[2019-02-20 12:03] VITALS: BP 151/94
--- NOTE | 2019-02-20 14:13 | NUR ---
CONTINUE TO FOLLOW, PT IN AFIB TODAY AND ON GTT, NOT READY FOR DC
[2019-02-20 16:45] VITALS: BP 124/44
--- NOTE | 2019-02-20 18:00 | NUR ---
ASSUMED PT CARE AT 0700, PT A&O X4, VSS, COW BUYER TRACING AFIB WITH HR UP TO 140'S, CARDIOLOGY ALERTED, FULL ASSESSMENT CHARTED. PT CONT TO CONVERT TO SINUS RHYTHM AND BACK INTO AFIB DESPITE MULTIPLE MED REGIMENS, CARDIOLOGY CONT TO FOLLOW, HR HAS DECREASED TO 70-90'S, PT REMAINS ON GTT, PT TOLERATING WELL.
[2019-02-20 20:00] VITALS: BP 142/71
[2019-02-21] VITALS: BP 106/44
[2019-02-21 04:00] VITALS: BP 107/52
--- NOTE | 2019-02-21 05:47 | NUR ---
ASSUMED PATIENT CARE AT 1900. ASSESSMENT COMPLETED CHARTED. VSS. PATIENT IS A-FIB ON THE MONITOR. HOURLY ROUNDING IN PLACE FOR PATIENT SAFETY. CLWR.
[2019-02-21 08:00] VITALS: BP 129/57
--- NOTE | 2019-02-21 11:31 | NUR ---
Nutrition: Reassessment. Pt stated she is not eating as much as usual b/c she is "just sittin ghere." She stated she'll be eating just fine when she gets back home. She refused Ensure d/t dislike of them. She drinks Boost occ at home. Alb 2.5, prealb 12. I reweighed her at 141# in bed. Low risk.
[2019-02-21 11:55] VITALS: BP 136/68
--- NOTE | 2019-02-21 14:22 | NUR ---
Following for d/c planning needs. Pt will need home health on d/c from hospital. Called pt's granddaughter Carol, per patient's request. Granddaughter works for [employer]. She is agreeable to home health. She was given choices and wants to use [facility]. Called [facility] and faxed referral. Orders will need to be faxed to [facility] on d/c from hospital. [facility] [phone]; fax [phone]
[2019-02-21 16:03] VITALS: BP 108/61
[2019-02-21 20:00] VITALS: BP 126/57
[2019-02-22] VITALS: BP 120/59
[2019-02-22 04:00] VITALS: BP 114/63
--- NOTE | 2019-02-22 06:45 | NUR ---
ASSUMED PATIENT CARE AT 1900. ASSESSMENT COMPLETED CHARTED. VSS. PATIENT IS AFIB ON THE MONITOR. HOURLY ROUNDING IN PLACE FOR PATIENT SAFETY. CLWR.
[2019-02-22 08:15] VITALS: BP 120/69
--- NOTE | 2019-02-22 08:15 | NUR ---
ASSUMED CARE AFTER REPORT APPROX 0730. A&OX4, ABLE TO COMMUNICATE NEEDS TO STAFF. ASSESSMENT COMPLETE, DOCUMENTED. VS OBTAINED, O2 SATS 94% RA. PUBLIC HEALTH WORKER IN PLACE, SR. UP WITH ASSIST, WEAK. VERY INTERESTED IN DC PLAN FOR TODAY. EDUCATION GIVEN R/T UNIT ROUTINE AND PHYSICIAN ROUNDING. AGREES TO PLAN OF CARE. CALL LIGHT IN REACH. HOURLY ROUNDING FOR SAFETY AND PATIENT NEEDS.
[2019-02-22 11:30] VITALS: BP 135/61
[2019-02-22] MEDS ORDERED: DIGOX125 MCG PO (12:49)
[2019-02-22] MEDS ORDERED: CARDIZEM CD 18180 M3 PO (12:52)
[2019-02-22] MEDS ORDERED: AUGMENTIN 875-1 EACH PO (12:53)
[2019-02-22 12:57] VITALS: BP 126/45
[2019-02-22 13:02] VITALS: BP 126/45
[2019-02-22] MEDS ORDERED: ELIQUIS2.5 MG PO (13:11)
[2019-02-22] MEDS ORDERED: BRILINTA90 MG PO (13:11)
--- NOTE | 2019-02-22 13:30 | NUR ---
PATIENT HAS COMPLETE DC ORDER, HOME WITH HOME HEALTH. REVIEWED DC INSTRUCTIONS AND MED LIST WITH PATIENT. ANSWERED QUESTIONS TO PATIENT SATISFACTION. IV AND BAND SAW MARKER DC'D. MONITOR CLEANED AND REPLACED TO POCKET FOR ROOM 223. PATIENT IN POSSESSION OF ALL BELONGINGS. PATIENT FAMILY FRIEND TO BEDSIDE TO TRANSPORT PATIENT HOME VIA CAR. PATIENT LEFT UNIT VIA AND NURSING STAFF. FAXED ORDERS TO [facility] AFTER CALLING AGENCY TO ALERT THAT PATIENT IS TO BE DC'D. VERIFIED REFERRAL TO WITH [facility].
== END 2019-02-22 13:50 | disposition home health service (06) | DRG 444 ==
LOC: M.ERS 11:11 → M.2W 12:40 → M.TBA-ER 12:40 → M.2W 12:40
PROVIDERS: Emergency Medicine Emergency Medical Services; Nurse Practitioner; Surgery; ADMIT Internal Medicine
DX: K81.0 Acute cholecystitis (principal); E43 Unspecified severe protein-calorie malnutrition; B17.9 Acute viral hepatitis, unspecified; I50.22 Chronic systolic (congestive) heart failure; S37.892A Contusion of other urinary and pelvic organ, initial encounter; K83.09 Other cholangitis; J20.9 Acute bronchitis, unspecified; B27.00 Gammaherpesviral mononucleosis without complication; I25.5 Ischemic cardiomyopathy; I25.10 Atherosclerotic heart disease of native coronary artery without angina pectoris; S30.1XXA Contusion of abdominal wall, initial encounter; X58.XXXA Exposure to other specified factors, initial encounter; I05.2 Rheumatic mitral stenosis with insufficiency; E78.5 Hyperlipidemia, unspecified; E80.6 Other disorders of bilirubin metabolism; I11.0 Hypertensive heart disease with heart failure; R74.0 Nonspecific elevation of levels of transaminase and lactic acid dehydrogenase [LDH]; K76.89 Other specified diseases of liver; I48.0 Paroxysmal atrial fibrillation; I25.2 Old myocardial infarction; Y92.89 Other specified places as the place of occurrence of the external cause; Z95.5 Presence of coronary angioplasty implant and graft; Y93.89 Activity, other specified; Z90.710 Acquired absence of both cervix and uterus; Y99.8 Other external cause status; Z79.899 Other long term (current) drug therapy; Z79.82 Long term (current) use of aspirin

== ENCOUNTER 2019-03-15 17:21 | Inpatient (IN) | payer MEDICARE, OTHER ==
[~2019-03-15] VITALS: Ht 170.2 cm; Wt 68.5 kg
[~2019-03-15 17:21] MED LIST changes: +AUGMENTIN 875-1 EACH PO; +BRILINTA90 MG PO; +CARDIZEM CD 18180 M3 PO; +DIGOX125 MCG PO; +ELIQUIS2.5 MG PO
[2019-03-15 17:22] VITALS: BP 119/89
[2019-03-15 17:45] LABS: HEMOGLOBIN 11.2 gm/dL (12.0-15.0); MCH 28.5 pg (26.0-34.0); MCV 86.6 fL (80.0-100.0); MPV 9.2 fl. (7.2-11.1); NUCLEATED RBCS 0 /100WBC; PLATELET COUNT* 268 thou/uL (150-400); RBC 3.93 mil/uL (4.20-5.00); WBC 24.7 thou/uL (4.0-11.0)
[2019-03-15 17:57] LABS: INR 1.2; PROTIME 12.6 Seconds (9.20-11.50)
[2019-03-15 17:58] LABS: CALCIUM 8.6 mg/dL (8.5-10.1); CREATININE 1.2 mg/dL (0.6-1.3); POTASSIUM 3.6 mmol/L (3.5-5.1)
[2019-03-15 18:09] LABS: ALBUMIN 2.6 g/dL (3.4-5.0); TOTAL BILIRUBIN 0.9 mg/dL (<0.1-1.0); TOTAL PROTEIN 6.3 g/dL (6.4-8.2)
[2019-03-15 18:30] LABS: ABSOLUTE LYMPHOCYTES 0.2 thou/uL (0.8-5.3); ABSOLUTE MONOCYTES 1.2 thou/uL (0.0-1.2); ABSOLUTE NEUTROPHILS 23.2 thou/uL (1.6-8.1); PLATELET ESTIMATE ADEQUATE
[2019-03-15 18:31] LABS: ANISOCYTOSIS 1+
[2019-03-15 18:47] VITALS: BP 122/78
[2019-03-15 20:00] VITALS: BP 110/53
[2019-03-16] VITALS (7 sets, daily range): BP systolic 96–151; BP diastolic 31–52
--- NOTE | 2019-03-16 02:13 | NUR ---
PT ALERT ORIENTED. UP TO BR WITH ASSIST OF ONE. PAIN IN LEFT LEG. TYLENOL GIVEN. L LEG RED CELLULITIS. UP ON PILLOW. TELEMETRY SHOWS SR OCCASIONAL PVC. ON RA. WELL CONTINUE TO MONITOR.
[2019-03-16 04:31] LABS: ABSOLUTE LYMPHOCYTES 1.1 thou/uL (0.8-5.3); ABSOLUTE MONOCYTES 1.6 thou/uL (0.0-1.2); BASOPHILS 0.1 %; EOSINOPHILS 0.1 %; HEMATOCRIT 28.1 % (37.0-47.0); LYMPHOCYTES 4.9 %; MCH 28.1 pg (26.0-34.0); MCHC 32.4 g/dL (28.0-37.0); MCV 86.5 fL (80.0-100.0); MONOCYTES 6.9 %; MPV 9.1 fl. (7.2-11.1); NUCLEATED RBCS 0 /100WBC; PLATELET COUNT* 232 thou/uL (150-400); RBC 3.25 mil/uL (4.20-5.00); RDW-CV 17.4 % (10.5-14.5); WBC 22.7 thou/uL (4.0-11.0)
[2019-03-16 05:06] LABS: CALCIUM 7.9 mg/dL (8.5-10.1); CREATININE 0.9 mg/dL (0.6-1.3); POTASSIUM 3.2 mmol/L (3.5-5.1)
[2019-03-16 05:08] LABS: HEMOGLOBIN 9.1 gm/dL (12.0-15.0)
--- NOTE | 2019-03-16 11:56 | NUR ---
ASSUMED PT CARE REPORT RECEIVED FROM NURSE PT IS AOX4 ON RA. O2 SATURATION 98%. DENIES PAIN. PT UP TO CHAIR WITH ASSISTANCE AND WALKER. PT USES THE BEDSIDE COMMODE NEEDED. HAD ONE EPISODE OF LOOSE/LIQUID BOWEL MOVEMENT. WILL MONITOR. PT HAS GOOD APPETITE. VSS. BP SOFT. CARDIZME HELD UNITL LATER TODAY WHEN BP AMELIORATES. NO FEVER. LEFT LEG IS RED AND SWOLLEN DUE TO CELLULITIS. IV ABX GIVEN. IV FLUID INFUSING AT 125 PER HOURS ORDERED. POTASSIUM REPLACEMENT GIVEN. WILL CONTINUE TO MONITOR PT
--- NOTE | 2019-03-16 12:25 | EKG ---
[place] [address] ELECTROCARDIOGRAM REPORT Name: KOBE KRAUSE Room: [address] ADM IN M.R.#: [id number] Admission: 03/15/19 Attend Phys: Terrance Del Rosario MD Discharge: Date of : 31 Report #: [id number] THIS REPORT FOR: //name// [facility] Test Date: 2019-03-15 Test Time: 17:32:43 Pat Name: KOBE KRAUSE Department: Room: [facility] Gender: F Risk Officer: : 1935 Requested By: Boni Smith Order Number: [id number] MD: Jason Johnson Measurements Intervals [place] Rate: 91 P: 57 [place]: 155 QRS: 5 QRSD: 92 T: 58 QT: 342 QTc: 421 Interpretive Statements Sinus rhythm Multiple premature complexes, vent & supraven with abberancy Nonspecific T abnormalities, anterior leads Compared to ECG 02/20/2019 08:28:42 Atrial fibrillation no longer present Prolonged QT interval no longer present Electronically Signed On 03-16-2019 12:24:47 ELECTROMEDICAL EQUIPMENT TECHNICIAN by Jason Johnson [email or web address] <ELECTRONICALLY SIGNED> By: Jason Johnson MD, [facility] 03/16/19 1224 1732 1732 Jason Johnson MD, [facility] /EPI
[2019-03-17] VITALS (8 sets, daily range): BP systolic 84–166; BP diastolic 35–65
[2019-03-17 05:03] LABS: ABSOLUTE BASOPHILS 0.1 thou/uL (0.0-0.2); ABSOLUTE EOSINOPHILS 0.5 thou/uL (0.0-0.7); ABSOLUTE MONOCYTES 1.1 thou/uL (0.0-1.2); ABSOLUTE NEUTROPHILS 16.9 thou/uL (1.6-8.1); BASOPHILS 0.3 %; EOSINOPHILS 2.6 %; HEMATOCRIT 27.3 % (37.0-47.0); LYMPHOCYTES 5.1 %; MCH 28.3 pg (26.0-34.0); MCV 85.6 fL (80.0-100.0); MONOCYTES 5.6 %; MPV 9.4 fl. (7.2-11.1); NUCLEATED RBCS 0 /100WBC; PLATELET COUNT* 233 thou/uL (150-400); POLYS 86.4 %; RBC 3.18 mil/uL (4.20-5.00); RDW-CV 17.5 % (10.5-14.5); WBC 19.6 thou/uL (4.0-11.0)
--- NOTE | 2019-03-17 05:23 | NUR ---
PT IS ABLE TO COMMUNICATE HER NEEDS TO STAFF EFFECTIVELY. CURRENT PAIN MEDICATION REGIMEN HAS BEEN MARGINALLY ADEQUATE FOR CONTROLLING HER PAIN UP TO THIS TIME; LEFT LEG IS PAIN SOURCE; PT HAS LIMITED WT. BEARING TO LEFT LEG.
[2019-03-17 05:24] LABS: ALBUMIN 1.9 g/dL (3.4-5.0); CALCIUM 7.9 mg/dL (8.5-10.1); CREATININE 0.7 mg/dL (0.6-1.3); POTASSIUM 3.8 mmol/L (3.5-5.1); TOTAL BILIRUBIN 1.2 mg/dL (<0.1-1.0); TOTAL PROTEIN 5.2 g/dL (6.4-8.2)
--- NOTE | 2019-03-17 10:45 | NUR ---
ASSUMED PT CARE REPORT RECEIVED FROM NURSE PT IS AOX4 ON 2 L NC. COMPLAINTS OF SOA. WAS TRACING SR AT 0800 AM. VSS. THEN PT HEART RYTHM CHANGED TO SVT, HEART RATE AT 160S EKG DONE AT BEDSIDE. SHOWS SVT. PT REMAINS ASYMPTOMATIC BESIDES HAVING SOB. VS MONITORED AGAIN. SEE CHART. PT WAS ASKED TO BEAR DOWN WHICH HELPS BRING HEART RATE DOWN TEMPORARILY. CARDIOLOGY CONSULTED. ADENOSIN 6 MG ORDERED AND GIVEN ORDERED. PT THEN WENT THROUGH A SHORT SEIZURE AFTER ADENOSIN ADMINISTRATION THAT LASTED LESS THAN 1 MIN. P THEN CONVERTED TO AFIB ON TUNNEL MAN. HEART RATE VARIES BETWEEN 120 AND 140 . PT OXYGEN LEVEL WAS INCRESED TO 3 L NC AND O2 SATURATION WAS NOTED AT 95%. PT MORNING MEDICATION WERE ADMINISTERED DURING BREAKFAST. CARDIZEM DRIP STARTED AT 5 CC PER HOUR SEE ORDERS. CALL LIGHT AT REACH. FALL PRECAUTION IN PLACE. WILL CONTINUE TO MONITOR PT
--- NOTE | 2019-03-17 14:23 | EKG ---
[place] [address] ELECTROCARDIOGRAM REPORT Name: KOBE KRAUSE Room: [address] ADM IN M.R.#: [id number] Admission: 03/15/19 Attend Phys: Terrance Del Rosario MD Discharge: Date of : 31 Report #: [id number] THIS REPORT FOR: //name// [facility] Test Date: 2019-03-15 Test Time: 21:20:15 Pat Name: KOBE KRAUSE Department: Room: [address] Gender: F Senior Mobile Solutions Architect: [id number] : 1935 Requested By: Terrance Del Rosario Order Number: [id number] Reading MD: Jason Johnson Measurements Intervals [place] Rate: 101 P: 91 [place]: 129 QRS: 14 QRSD: 97 T: 29 QT: 347 QTc: 450 Interpretive Statements atrial fibrillation Anteroseptal infarct, age indeterminate Compared to ECG 03/15/2019 17:32:43 Sinus rhythm no longer present Electronically Signed On 03-17-2019 14:23:18 CASE REVIEWER by Jason Johnson [email or web address] <ELECTRONICALLY SIGNED> By: Jason Johnson MD, [facility] 03/17/19 1423 19 19 Jason Johnson MD, [facility] /EPI
--- NOTE | 2019-03-17 14:29 | EKG ---
[place] [address] ELECTROCARDIOGRAM REPORT Name: KOBE KRAUSE Room: [address] ADM IN M.R.#: [id number] Admission: 03/15/19 Attend Phys: Terrance Del Rosario MD Discharge: Date of : 31 Report #: [id number] THIS REPORT FOR: //name// [facility] Test Date: 2019-03-17 Test Time: 08:39:32 Pat Name: KOBE KRAUSE Department: Room: [address] Gender: F Loft Rigger: MEKA : 1935 Requested By: Terrance Del Rosario Order Number: [id number] Glenn MD: Jason Johnson Measurements Intervals [place] Rate: 170 P: 185 WI: 95 QRS: 15 QRSD: 74 T: 160 QT: 248 QTc: 417 Interpretive Statements Incomplete analysis due to missing data in precordial lead(s) Supraventricular tachycardia Low voltage, extremity leads Repolarization abnormality, prob rate related Baseline wander in lead(s) V3 Missing lead(s): V4 Compared to ECG 03/15/2019 17:32:43 Low QRS voltage now present Early repolarization now present Sinus rhythm no longer present Electronically Signed On 03-17-2019 14:28:35 ULTRASONIC TESTER by Jason Johnson [email or web address] <ELECTRONICALLY SIGNED> By: Jason Johnson MD, [facility] 03/17/19 1428 8 Jason Johnson MD, [facility] /EPI
--- NOTE | 2019-03-17 15:59 | NUR ---
Pt is A&O. Resides at home alone. Independent. Grandchildren assist as needed. Pt has a walker that he can use if needed. Current with [facility]. No hx of SNF. Goal is home at ga, CM following for dispo.
--- NOTE | 2019-03-17 16:24 | CON ---
[address] [address] CONSULTATION Name: JIMIKOBE Room: [address] IN M.R.#: [id number] Admission: 03/15/19 Attend Phys: Terrance Del Rosario MD Discharge: Date of : 33 Report #: [id number] THIS REPORT FOR: //name// CC: Terrance Patel DO DATE OF SERVICE: 03/17/2019 CARDIOLOGY CONSULTATION HISTORY OF PRESENT ILLNESS: The patient is an 83-year-old single white female who I was asked to see in the hospital today after she was noted to have a narrow complex tachycardia. The patient initially presented in 01/2019 with chest pain. She was on no medications at that time. She presented at 5:30 in the morning with an abnormal ECG. I was asked to see her on an emergent basis. I performed emergent cardiac catheterization on 01/21 from the right femoral artery. She had an 80% narrowing of the proximal LAD that was totally occluded in the mid portion of the vessel. The diagonal artery had a 70% stenosis, circumflex had no significant disease, the first marginal branch had a 90% proximal stenosis, the right coronary artery had only 40% proximal narrowing, ejection fraction 45%. I then placed two drug-eluting stents in the mid and distal LAD. She was discharged and then readmitted 02/07 by my partner, Dr. Neal Ardon for repeat heart catheterization and she was found to have widely patent stents in the mid and distal LAD. The nondominant circumflex had a 90% first marginal branch stenosis. He then placed another stent in the proximal LAD and another stent in the circumflex artery. Ejection fraction again was only 55%. She was placed on Brilinta. However, she was readmitted a day later with weakness and fever. She was noted to be in atrial fibrillation. She also had elevated liver function studies and was found to have gallstones. Dr. Ardon recommended rate control of the atrial fibrillation. However, she is not felt to be a candidate for anticoagulation because of her bleeding. It was recommended not performing a cholecystectomy at that time. She was discharged on 02/22. She was discharged and saw my nurse practitioner in 02/26. She had no significant chest pain. She did develop a skin rash. She was continued on Brilinta. She was started on Xarelto. She has done well since that time and was admitted 2 days ago with increasing shortness of breath and a cough. She had fallen one time. She was brought here to the Emergency Room. Today, she went into a narrow complex tachycardia and I was asked to see her for further evaluation and treatment. She denied any palpitations or syncope. PAST MEDICAL HISTORY: Otherwise significant for previous appendectomy, hysterectomy, cataract extraction. No previous history of hypertension, diabetes or hyperlipidemia. CURRENT MEDICATIONS: Consist of the following: She is on diltiazem, Brilinta, [place] [address] CONSULTATION Name: JIMIKOBE Room: [address] IN ..#: [id number] Admission: 03/15/19 Attend Phys: Terrance Del Rosario MD Discharge: Date of : 33 Report #: [id number] Eliquis. She was taken off of digoxin. ALLERGIES: She had no known drug allergies. FAMILY HISTORY: Her mother had a heart attack. SOCIAL HISTORY: She is single, lives by herself in [place]. No smoking or alcohol abuse. REVIEW OF SYSTEMS: No history of stroke, asthma, peptic ulcer disease, liver disease, kidney disease. She has skin cancer. She does have a rash. PHYSICAL EXAMINATION: GENERAL: Revealed an elderly frail appearing female who is lying in bed. VITAL SIGNS: Blood pressure 120/60, pulse is 140. She is afebrile. HEENT: She was anicteric. Conjunctivae pink. Mucous membranes appear dry. NECK: Veins do not appear distended. CHEST: Clear to auscultation. CARDIOVASCULAR: Regular, tachycardia. ABDOMEN: Soft. EXTREMITIES: Had 1+ edema in the left lower extremity. DIAGNOSTIC DATA: Her ECG on admission showed a sinus rhythm, nonspecific ST-segment changes. Today, she appears to have a narrow complex tachycardia at 160 beats per minute consistent with paroxysmal supraventricular tachycardia. She had a CT scan of the head when she came in 2 days ago because of recent fall that showed microvascular ischemic changes, small old infarction. Chest x-ray showed no acute abnormality. She had a venous duplex scan of the legs because of edema that showed no DVT. LABORATORY DATA: Sodium 142, creatinine 0.7, bilirubin 1.2, SGPT 18, SGOT 28. Troponin 0.06. BNP 7610. TSH last month was 1.0. White blood cell count 19.6, hemoglobin 9.0. IMPRESSION AND RECOMMENDATIONS: 1. Atrial arrhythmias. The patient now appears to be in paroxysmal supraventricular tachycardia. History of atrial fibrillation. I would recommend starting amiodarone. The patient is on Xarelto. 2. Coronary artery disease. Previous stents. The patient on Brilinta. I would not recommend aspirin since she is on Xarelto. 3. Cholecystitis. 4. History of hyperlipidemia. [address] [place] [address] CONSULTATION Name: KOBE KRAUSE Room: [address] IN M.R.#: [id number] Admission: 03/15/19 Attend Phys: Terrance Del Rosario MD Discharge: Date of : 33 Report #: [id number] 5. Drug rash. 6. Shortness of breath. Suspect multifactorial. <ELECTRONICALLY SIGNED> By: Jason Johnson MD, FACC 03/17/19 1624 0922 [id number] Johnson MD, FACC /nt
--- NOTE | 2019-03-17 18:18 | NUR ---
PT CONVERTED TO SR AT 1700. HEART RATE 70S. CARDIZEM DRIP STOPPED
[2019-03-18] VITALS: BP 103/39
[2019-03-18 04:00] VITALS: BP 101/43
[2019-03-18 04:45] LABS: ABSOLUTE BASOPHILS 0.1 thou/uL (0.0-0.2); ABSOLUTE EOSINOPHILS 0.6 thou/uL (0.0-0.7); ABSOLUTE MONOCYTES 0.9 thou/uL (0.0-1.2); ABSOLUTE NEUTROPHILS 11.4 thou/uL (1.6-8.1); BASOPHILS 0.4 %; EOSINOPHILS 4.5 %; HEMATOCRIT 26.7 % (37.0-47.0); HEMOGLOBIN 8.8 gm/dL (12.0-15.0); LYMPHOCYTES 7.2 %; MCH 28.4 pg (26.0-34.0); MCHC 33.2 g/dL (28.0-37.0); MCV 85.6 fL (80.0-100.0); MONOCYTES 6.4 %; MPV 9.5 fl. (7.2-11.1); NUCLEATED RBCS 0 /100WBC; PLATELET COUNT* 269 thou/uL (150-400); POLYS 81.5 %; RBC 3.11 mil/uL (4.20-5.00); RDW-CV 17.4 % (10.5-14.5); WBC 13.9 thou/uL (4.0-11.0)
[2019-03-18 05:11] LABS: ALBUMIN 1.9 g/dL (3.4-5.0); CALCIUM 7.7 mg/dL (8.5-10.1); CREATININE 0.9 mg/dL (0.6-1.3); POTASSIUM 3.2 mmol/L (3.5-5.1); TOTAL BILIRUBIN 2.5 mg/dL (<0.1-1.0); TOTAL PROTEIN 5.1 g/dL (6.4-8.2)
--- NOTE | 2019-03-18 05:29 | NUR ---
PT IS ABLE TO COMMUNICATE HER NEEDS TO STAFF EFFECTIVELY. CURRENT PAIN MEDICATION REGIMEN HAS BEEN ADEQUATE FOR CONTROLLING HER PAIN UP TO THIS TIME. PT HAS REPORTED HAVING A LITTLE LESS PAIN TONIGHT COMPAIRED TO LAST NIGHT. POSSIBLE DISCHARGE TO A SKILLED FACILITY LATER THIS WEEK.
[2019-03-18 08:00] VITALS: BP 137/50
--- NOTE | 2019-03-18 10:07 | NUR ---
ASSUMED PT CARE REPORT RECEIVED FROM NURSE PT IS AOX4 ON 3 L NC. SOB WITH EXERTION. O2 SATURATION 92%. VSS. SR ON LVN LPN. HEART RATE 70. DENIES PAIN. IV ABX GIVEN. PILLS GIVEN CRUSHED IN APPLE SAUCE. HOB ELEVATED. CALL LIGHT AT REACH. WILL CONTINUE TO MONITOR
--- NOTE | 2019-03-18 10:42 | NUR ---
CM spoke with Pt regarding disposition, informed of recommendation for SNF at dc. Pt is hopeful that she can return home at dc, but understands that she may need skilled. Therapy orders placed. Pt states that if she does need skilled, she would want to go to [facility] in [place] to fax initial referral.
--- NOTE | 2019-03-18 13:06 | CON ---
[address] [address] CONSULTATION Name: KOBE KRAUSE Room: [address] ADM IN M.R.#: [id number] Admission: 03/15/19 Attend Phys: Terrance Del Rosario MD Discharge: Date of : 33 Report #: [id number] THIS REPORT FOR: //name// CC: Terrance Del Rosario [facility] DATE OF SERVICE: 03/18/2019 INFECTIOUS DISEASE CONSULTATION ATTENDING PHYSICIAN: Terrance Del Rosario M.D. REASON FOR EVALUATION: Left lower extremity skin and soft tissue infection with cellulitis. HISTORY OF PRESENT ILLNESS: Chart reviewed, patient examined. This is an 83-year-old woman, known to myself, who actually was admitted at least 2 other occasions in the last couple of months, and I had seen her in consultation in early February with febrile illness, elevated LFTs. She is known to have acute myocardial infarction prior to that. She apparently experienced near syncopal episode on the day of admission, felt it was due to change in position, going from sitting to standing too quickly, had not had prior warning, although she did admit to left lower extremity increasing inflammation with redness and swelling that day as well. It is not clear that she had fevers. She states she has had generally a poor appetite, which she attributes not to nausea or other specific sign or symptom. She is maintained on supplemental oxygen 3 liters appears to be dyspneic at rest. She had a tentative diagnosis of left lower extremity cellulitis. She was then started empirically on combination therapy with vancomycin, ceftriaxone. Serially, her white count is progressively decreased; initially it was 24.7 and today 13.9. She is mildly encephalopathic. ALLERGIES: None known. MEDICATIONS: Vancomycin, amiodarone, digoxin, pantoprazole, apixaban, ticagrelor, atorvastatin, ceftriaxone, p.r.n. analgesics, and antiemetics. PAST MEDICAL AND SURGICAL HISTORY: Hypertension, has known atherosclerotic coronary artery disease with recent acute myocardial infarction and stenting, previous hysterectomy, recent history of elevated LFTs, perhaps medicine related with cholangitis is a consideration. SOCIAL AND FAMILY HISTORY: Available in chart. REVIEW OF SYSTEMS: As above. PHYSICAL EXAMINATION: [place] [address] CONSULTATION Name: KOBE KRAUSE Room: [address] IN [facility]#: [id number] Admission: 03/15/19 Attend Phys: Terrance Del Rosario MD Discharge: Date of : 33 Report #: [id number] GENERAL: She appears chronically ill, undernourished. She is pleasant, cooperative. She is in moderate distress secondary to respiratory effort. VITAL SIGNS: Temperature 97.8, pulse 76, respirations 18, and blood pressure 137/50. SKIN: Warm, dry, no rashes. HEENT: Nasal cannula oxygen in place. Neck is supple. Extraocular muscles intact. Normocephalic. LUNGS: Scattered coarse breath sounds, does have some wheezes on expiration. HEART: Regular. I do not appreciate a murmur. ABDOMEN: Soft, nontender, nondistended. EXTREMITIES: Left lower extremity has moderate inflammatory erythrodermic-type eruption involving the distal lower extremity and foot just below the knee and somewhat tender to palpation. Distal pulses seem diminished, maybe due to the edema. Some bullous lesions. No ulcerations. GENITOURINARY: Deferred. RECTAL: Deferred. LABORATORY DATA: Most recent electrolytes, sodium 140, potassium 3.2, chloride 109, bicarbonate is 18, anion gap of 13, BUN and creatinine 15 and 0.9, glucose of 110. AST of 69, ALT of 41, total bilirubin of 2.5, albumin 1.9. Prealbumin is 75. CBC: White count of 13.9, is down from 24.7; H and H 8.8 and 26.7; platelets of 269. Chest x-ray shows small pleural effusion on the right side, perhaps a patchy pneumonia. Blood cultures are sterile thus far. ProBNP elevated at 593.6. CRP of 248.6. Lower extremities venous Dopplers were otherwise unremarkable. No evidence of deep venous thrombosis. ASSESSMENT AND PLAN: Left lower extremity inflammatory eruption. I suspect cellulitic component. We will continue empiric therapy, elevation, consider adding some compression as well. Secondly, perhaps early pneumonitis, certainly at risk. LFTs persistent elevation, though they were normal on admission. It certainly raises question of drug-induced hepatitis. We will see how she does clinically. Certainly is in a tenuous situation at this point. We will monitor expectantly. <ELECTRONICALLY SIGNED> By: Krishna Castillo MD 03/18/19 1306 1140 [id number] Castillo MD /nt
[2019-03-18 15:12] VITALS: BP 117/76
--- NOTE | 2019-03-18 16:54 | EKG ---
[place] [address] ELECTROCARDIOGRAM REPORT Name: KOBE KRAUSE Room: [address] ADM IN M.R.#: [id number] Admission: 03/15/19 Attend Phys: Terrance Del Rosario MD Discharge: Date of : 33 Report #: [id number] THIS REPORT FOR: //name// [facility] Test Date: 2019-03-18 Test Time: 09:17:42 Pat Name: KOBE KRAUSE Department: Room: [address] Gender: F Obstetrics Specialist: : 1935 Requested By: Jason Johnson Order Number: [id number] Glenn MD: Jason Johnson Measurements Intervals [place] Rate: 73 P: 68 IL: 112 QRS: 18 QRSD: 97 T: 57 QT: 374 QTc: 413 Interpretive Statements atrial fibrillation Low voltage, extremity leads Minimal ST depression, lateral leads Compared to ECG 03/17/2019 08:39:32 Supraventricular tachycardia no longer present Electronically Signed On 03-18-2019 16:53:51 HOUSE DESIGNER by Jason Johnson [email or web address] <ELECTRONICALLY SIGNED> By: Jason Johnson MD, [facility] 03/18/19 4223 6 6 Jason Johnson MD, [facility] /EPI
[2019-03-18 17:37] VITALS: BP 134/56
[2019-03-18 20:04] VITALS: BP 122/51
[2019-03-19] VITALS (8 sets, daily range): BP systolic 90–131; BP diastolic 38–75
[2019-03-19 04:32] LABS: HEMATOCRIT 26.5 % (37.0-47.0); HEMOGLOBIN 8.9 gm/dL (12.0-15.0); MCH 28.5 pg (26.0-34.0); MCHC 33.6 g/dL (28.0-37.0); MCV 84.8 fL (80.0-100.0); MPV 9.3 fl. (7.2-11.1); NUCLEATED RBCS 0 /100WBC; PLATELET COUNT* 294 thou/uL (150-400); RBC 3.12 mil/uL (4.20-5.00); RDW-CV 17.6 % (10.5-14.5)
[2019-03-19 04:37] LABS: CALCIUM 7.6 mg/dL (8.5-10.1); CREATININE 0.8 mg/dL (0.6-1.3); POTASSIUM 3.6 mmol/L (3.5-5.1)
[2019-03-19 04:39] LABS: PREALBUMIN 7.7 mg/dL (18.0-35.7)
[2019-03-19 05:58] LABS: ABSOLUTE EOSINOPHILS 1.3 thou/uL (0.0-0.7); ABSOLUTE LYMPHOCYTES 0.4 thou/uL (0.8-5.3); ABSOLUTE MONOCYTES 0.6 thou/uL (0.0-1.2); ABSOLUTE NEUTROPHILS 8.7 thou/uL (1.6-8.1); ANISOCYTOSIS 1+; PLATELET ESTIMATE ADEQUATE; POIKILOCYTOSIS 1+
[2019-03-19 05:59] LABS: OVALOCYTES 1+
--- NOTE | 2019-03-19 06:01 | NUR ---
PT IS ABLE TO COMMUNICATE HER NEEDS TO STAFF EFFECTIVELY. CURRENT PAIN MEDICATION REGIMEN HAS BEEN ADEQUATE FOR CONTROLLING HER PAIN UP TO THIS TIME. POSSIBLE DISCHARGE TO SNF BY THE END OF THE WEEK.
--- NOTE | 2019-03-19 08:38 | NUR ---
CM faxed therapy evals to [facility], CM spoke with DON yesterday, they should be able to accept Pt at id.
--- NOTE | 2019-03-19 09:44 | EKG ---
[place] [address] ELECTROCARDIOGRAM REPORT Name: KOBE KRAUSE Kika Room: [address] ADM IN M.R.#: [id number] Admission: 03/15/19 Attend Phys: Terrance Del Rosario MD Discharge: Date of : 33 Report #: [id number] THIS REPORT FOR: //name// [facility] Test Date: 2019-03-19 Test Time: 08:45:54 Pat Name: KOBE KRAUSE Department: Room: [address] Gender: F Credit Card Control Clerk: : 1935 Requested By: Jason Johnson Order Number: [id number] Reading MD: Jason Johnson Measurements Intervals [place] Rate: 93 P: 105 [place]: 110 QRS: 40 QRSD: 76 T: 243 QT: 324 QTc: 403 Interpretive Statements atrial fibrillation poor r wave progression nonspecific st changes Compared to ECG 03/18/2019 09:17:42 no change Electronically Signed On 03-19-2019 9:43:32 TRIM SETTER HELPER by Jason Johnson [email or web address] <ELECTRONICALLY SIGNED> By: Jason Johnson MD, [facility] 03/19/19 0943 4 Jason Johnson MD, FACC /EPI
--- NOTE | 2019-03-19 11:22 | NUR ---
Spoke with , anticipate that Pt will be ready to dc to [facility] tomorrow. CM updated DON at [facility]
[2019-03-19 11:35] LABS: ALBUMIN 1.9 g/dL (3.4-5.0); DIRECT BILIRUBIN 2.4 mg/dL (<0.1-0.3); TOTAL PROTEIN 5.1 g/dL (6.4-8.2)
--- NOTE | 2019-03-19 19:30 | NUR ---
ASSUMED PT CARE AT 0700, PT A&O X4 WITH SOME FORGETFULNESS, UP WITH ASSIST X1 TO BEDSIDE COMMODE. AT APPROX 1900, PT WENT FROM NSR TO SVT TO AFIB RVR, NOTIFIED, NEW ORDERS RECVD, PT ASYMPTOMATIC. FULL ASSESSMENT CHARTED, HOURLY ROUNDING COMPLETED.
[2019-03-20] VITALS: BP 139/51
--- NOTE | 2019-03-20 03:49 | NUR ---
PT ALERT, ORIENTED, FORGETFUL. JUST PRIOR TO SHIFT CHG PT WENT INTO AFIB WITH RVR RATE UP TO 160. CARDIZEM BOLUS 10MG AND QTT STARTED AT 5MG/HR. QTT INCREASED TO 10MG/HR AT 2200. HR DOWN TO 90S-1 TEENS. WILL INCREASE TO 15 AT 0400. VOIDS PER BSC. PT UNABLE TO EMPTY BLADDER WITH BP. WILL CONTINUE TO MONITOR.
[2019-03-20 04:00] VITALS: BP 121/49
[2019-03-20 05:23] LABS: ABSOLUTE EOSINOPHILS 1.1 thou/uL (0.0-0.7); ABSOLUTE LYMPHOCYTES 0.9 thou/uL (0.8-5.3); ABSOLUTE MONOCYTES 0.7 thou/uL (0.0-1.2); ABSOLUTE NEUTROPHILS 5.7 thou/uL (1.6-8.1); BASOPHILS 0.6 %; EOSINOPHILS 12.7 %; HEMATOCRIT 29.4 % (37.0-47.0); HEMOGLOBIN 9.9 gm/dL (12.0-15.0); LYMPHOCYTES 10.1 %; MCH 28.4 pg (26.0-34.0); MCHC 33.8 g/dL (28.0-37.0); MCV 84.1 fL (80.0-100.0); MONOCYTES 8.9 %; MPV 9.6 fl. (7.2-11.1); NUCLEATED RBCS 0 /100WBC; PLATELET COUNT* 337 thou/uL (150-400); POLYS 67.7 %; RBC 3.49 mil/uL (4.20-5.00); RDW-CV 17.4 % (10.5-14.5); WBC 8.4 thou/uL (4.0-11.0)
[2019-03-20 05:39] LABS: ALBUMIN 1.9 g/dL (3.4-5.0); CREATININE 0.9 mg/dL (0.6-1.3); TOTAL BILIRUBIN 3.8 mg/dL (<0.1-1.0); TOTAL PROTEIN 5.6 g/dL (6.4-8.2)
[2019-03-20 05:42] LABS: POTASSIUM 2.8 mmol/L (3.5-5.1)
--- NOTE | 2019-03-20 08:48 | NUR ---
Pt went into Afib with RVR last night, no dc today, updated DON at [facility]
--- NOTE | 2019-03-20 14:40 | EKG ---
[place] [address] ELECTROCARDIOGRAM REPORT Name: KOBE KRAUSE Room: [address] ADM IN M.R.#: [id number] Admission: 03/15/19 Attend Phys: Terrance Del Rosario MD Discharge: Date of : 33 Report #: [id number] THIS REPORT FOR: //name// [facility] Test Date: 2019-03-19 Test Time: 19:16:46 Pat Name: KOBE KRAUSE Department: Room: [address] Gender: F Transportation Security Officer: JL : 1935 Requested By: Terrance Del Rosario Order Number: [id number] Reading MD: Jason Johnson Measurements Intervals [place] Rate: 145 P: FL: QRS: 4 QRSD: 80 T: 207 QT: 254 QTc: 395 Interpretive Statements Atrial fibrillation with rapid V-rate Repolarization abnormality, prob rate related Compared to ECG 03/19/2019 08:45:54 rate has increased Electronically Signed On 03-20-2019 14:40:11 LEGAL JOB TITLES by Jason Johnson [email or web address] <ELECTRONICALLY SIGNED> By: Jason Johnson MD, [facility] 03/20/19 1440 15 15 Jason Johnson MD, FAC /EPI
--- NOTE | 2019-03-20 15:21 | NUR ---
WOUND CARE NOTE: WAS REQUESTED TO ASSESS PATIENT FOR TUBIGRIPS. PATIENT WITH CELLULITIS/EDEMA TO THE LEFT LOWER EXTREMITY. 3+ EDEMA TO THE LEFT LEG. DID NOT OBSERVE ANY LESIONS. APPLIED LOTION TO THE EXTREMITY TO ASSIST WITH SKIN INTEGRITY. APPLIED SIZE F SINGLE LAYER TUBIGRIP. EDUCATED PATIENT IF THE GARMET FEELS TOO TIGHT TO LET NURSING KNOW, COMMUNICATED UNDERSTANDING. RECOMMEND REMOVE GARMET DAILY FOR CARES AND SKIN INSPECTION, MAY REPLACE SAME GARMET IF NOT VISIBLY SOILED ENCOURAGE ELEVATION OF EXTREMITY.
[2019-03-20 17:42] VITALS: BP 88/33
--- NOTE | 2019-03-20 18:30 | NUR ---
ASSUMED PT CARE AT 0700, PT UP WITH ASSIST X1, A&O X4 WITH FORGETFULNESS, CONT ON IV ABTS, PT TOLERATING WELL. FAMILY EDUCATED ON PLAN, WELL EDUCATING ON FULL CODE VS DNR STATUS. HOURLY ROUNDING COMPLETED.
[2019-03-20 20:00] VITALS: BP 110/62
[2019-03-21] VITALS (7 sets, daily range): BP systolic 100–136; BP diastolic 37–56
--- NOTE | 2019-03-21 06:00 | NUR ---
ASSUMED PT CARE AT APPROX 1930. PT IS AWAKEN AND ORIENTED X4, FORGETFUL. VSS ON 1L OF O2/NC. DIRECTOR OF EARLY CHILDHOOD IN PLACE TRACING SR. ASSESSMENT DONE AND CHARTED. PT IS ABLE TO SLEEP MOST OF THE NIGHT. CALL LIGHT WITHIN REACH. HIGH FALL PRECAUTIONS IN PLACE. HOURLY ROUNDING DONE FOR PT SAFETY.
[2019-03-21 07:31] LABS: ABSOLUTE EOSINOPHILS 0.8 thou/uL (0.0-0.7); ABSOLUTE LYMPHOCYTES 0.8 thou/uL (0.8-5.3); ABSOLUTE MONOCYTES 0.8 thou/uL (0.0-1.2); ABSOLUTE NEUTROPHILS 6.8 thou/uL (1.6-8.1); BASOPHILS 0.4 %; EOSINOPHILS 8.4 %; HEMATOCRIT 27.9 % (37.0-47.0); LYMPHOCYTES 8.9 %; MCH 27.4 pg (26.0-34.0); MCHC 32.4 g/dL (28.0-37.0); MCV 84.6 fL (80.0-100.0); MPV 9.9 fl. (7.2-11.1); NUCLEATED RBCS 0 /100WBC; PLATELET COUNT* 290 thou/uL (150-400); POLYS 73.3 %; RDW-CV 17.8 % (10.5-14.5); WBC 9.3 thou/uL (4.0-11.0)
[2019-03-21 07:45] LABS: ALBUMIN 1.9 g/dL (3.4-5.0); CALCIUM 8.2 mg/dL (8.5-10.1); CREATININE 1.1 mg/dL (0.6-1.3); POTASSIUM 3.8 mmol/L (3.5-5.1); TOTAL BILIRUBIN 2.1 mg/dL (<0.1-1.0); TOTAL PROTEIN 5.6 g/dL (6.4-8.2)
--- NOTE | 2019-03-21 10:35 | EKG ---
[place] [address] ELECTROCARDIOGRAM REPORT Name: KOBE KRAUSE Room: [address] ADM IN M.R.#: [id number] Admission: 03/15/19 Attend Phys: Terrance Del Rosario MD Discharge: Date of : 33 Report #: [id number] THIS REPORT FOR: //name// [facility] Test Date: 2019-03-21 Test Time: 09:13:17 Pat Name: KOBE KRAUSE Department: Room: [address] Gender: F Police Officer: : 1935 Requested By: Jason Johnson Order Number: [id number] Glenn MD: Jason Johnson Measurements Intervals [place] Rate: 68 P: 48 [place]: 176 QRS: 14 QRSD: 90 T: 23 QT: 480 QTc: 511 Interpretive Statements Sinus rhythm Borderline low voltage, extremity leads Nonspecific T abnormalities, anterior leads Prolonged QT interval Compared to ECG 03/19/2019 19:16:46 Prolonged QT interval now present Atrial fibrillation no longer present Early repolarization no longer present Electronically Signed On 03-21-2019 10:34:48 POWDER PRESS OPERATOR by Jason Johnson [email or web address] <ELECTRONICALLY SIGNED> By: Jason Johnson MD, [facility] 03/21/19 1034 2 2 Jason Johnson MD, [facility] /EPI
--- NOTE | 2019-03-21 15:36 | NUR ---
[facility] is able to accept Pt tomorrow for skilled, preferably the earlier the better. Nurse needs to ask for charge nurse to give report. Transportation will need to be arranged through [employer] [facility] [employer] [phone]. Chart will need to be copied [facility] p:[phone] f:
--- NOTE | 2019-03-21 20:34 | NUR ---
PT VSS, PT NSR ON TELE, HYPOTENSIVE, A&OX4, UP WITH ONE USES BEDSIDE COMMODE AND WALKER TO AMBULATE, HOURLY ROUNDING PERFORMED, POSSESSIONS AND CALL LIGHT WITHIN REACH.
[2019-03-22] VITALS: BP 114/41
[2019-03-22 04:00] VITALS: BP 129/79
--- NOTE | 2019-03-22 06:26 | NUR ---
ASSUMED PT CARE AT APPROX 1930. PT IS AWAKE AND ORIENTED X4. VSS ON 1L OF O2/NC. PT C/O LEFT LEG PAIN WORSE ON AMBULATION, PARTIALLY RELIEVED BY PAIN MEDS GIVEN PER JUN. NO ACUTE CHANGES THIS SHIFT. CALL LIGHT WITHIN REACH. HOURLY ROUNDING FOR PT SAFETY. HIGH FALL PRECAUTIONS IN PLACE.
[2019-03-22 08:00] VITALS: BP 149/67
[2019-03-22 11:48] VITALS: BP 149/67
[2019-03-22] MEDS ORDERED: LANOXIN125 MCG PO (12:25)
[2019-03-22] MEDS ORDERED: MINOCYCLINE HC100 M2 PO (12:48)
[2019-03-22] MEDS ORDERED: MIRALAX119 GM PO (12:49)
[2019-03-22] MEDS ORDERED: NITROSTAT0.4 M1 SUBLING (12:51)
[2019-03-22] MEDS ORDERED: NYSTATIN15 G3 TOP (12:54)
[2019-03-22] MEDS ORDERED: PROTONIX40 M4 PO (12:55)
[2019-03-22] MEDS ORDERED: PAIN RELIEF325 MG PO (12:57)
[2019-03-22] MEDS ORDERED: BRILINTA90 MG PO (12:57)
[2019-03-22] MEDS ORDERED: CARDIZEM30 MG PO (12:58)
[2019-03-22] MEDS ORDERED: AMIODARONE HCL400 MG PO (13:02)
[2019-03-22] MEDS ORDERED: COREG6.25 MG PO (13:04)
--- NOTE | 2019-03-22 19:00 | NUR ---
PT VSS, MED SURG STATUS, A&OX4, UP WITH ONE/ WALKER/ BEDSIDE COMMODE, HOURLY ROUNDING PERFORMED, CALL LIGHT AND POSSESSIONS WITHIN REACH. REC DISCHARGE ORDERS, REVIEWED WITH PATIENT, IV REMOVED WITHOUT COMPLICATION, PATIENT PICKED UP BY TRANSPORT AND TAKEN TO [facility] IN [place]. REPORT GIVEN TO THANG BAKER.
== END 2019-03-22 15:50 | DRG 871 ==
LOC: M.ERS 17:21 → M.2W 18:09 → M.TBA-ER 18:09 → M.2W 19:09
PROVIDERS: Family Medicine; Internal Medicine Cardiovascular Disease; ADMIT Internal Medicine
DX: A41.9 Sepsis, unspecified organism (principal); E43 Unspecified severe protein-calorie malnutrition; J18.9 Pneumonia, unspecified organism; I50.23 Acute on chronic systolic (congestive) heart failure; L03.116 Cellulitis of left lower limb; I47.1 Supraventricular tachycardia; J96.10 Chronic respiratory failure, unspecified whether with hypoxia or hypercapnia; K83.09 Other cholangitis; E78.5 Hyperlipidemia, unspecified; I11.0 Hypertensive heart disease with heart failure; I25.10 Atherosclerotic heart disease of native coronary artery without angina pectoris; E86.0 Dehydration; I35.1 Nonrheumatic aortic (valve) insufficiency; D50.9 Iron deficiency anemia, unspecified; E53.8 Deficiency of other specified B group vitamins; K75.9 Inflammatory liver disease, unspecified; E80.6 Other disorders of bilirubin metabolism; R74.0 Nonspecific elevation of levels of transaminase and lactic acid dehydrogenase [LDH]; T50.905A Adverse effect of unspecified drugs, medicaments and biological substances, initial encounter; Z90.710 Acquired absence of both cervix and uterus; I25.2 Old myocardial infarction; Z95.5 Presence of coronary angioplasty implant and graft; Z90.49 Acquired absence of other specified parts of digestive tract; Z82.49 Family history of ischemic heart disease and other diseases of the circulatory system; Z86.73 Personal history of transient ischemic attack (TIA), and cerebral infarction without residual deficits; Z68.23 Body mass index [BMI] 23.0-23.9, adult; Y92.89 Other specified places as the place of occurrence of the external cause; Z79.899 Other long term (current) drug therapy

== ENCOUNTER 2019-04-15 14:16 | Inpatient (IN) | payer MEDICARE, OTHER ==
[~2019-04-15] VITALS: Ht 152.4 cm; Wt 62.1 kg
[~2019-04-15 14:16] MED LIST changes: +AMIODARONE HCL400 MG PO; +CARDIZEM30 MG PO; +COREG6.25 MG PO; +LANOXIN125 MCG PO; +MINOCYCLINE HC100 M2 PO; +MIRALAX119 GM PO; +NITROSTAT0.4 M1 SUBLING; +NYSTATIN15 G3 TOP; +PAIN RELIEF325 MG PO; +PROTONIX40 M4 PO
[2019-04-15 14:24] VITALS: BP 154/52
[2019-04-15 14:32] LABS: URINE BLOOD 3+ (Negative); URINE CLARITY CLEAR; URINE COLOR YELLOW; URINE GLUCOSE-RANDOM NEGATIVE (Negative); URINE KETONES TRACE (Negative); URINE PROTEIN 2+ (Negative); URINE SPECIFIC GRAVITY 1.025 (1.005-1.030); URINE UROBILINOGEN 0.2 E.U./dl (0.2-1.0)
[2019-04-15 14:35] LABS: URINE BILIRUBIN 1+ (Negative); URINE LEUKOCYTES-REFLEX 2+ (Negative); URINE NITRITE-REFLEX POSITIVE (Negative)
[2019-04-15 14:39] LABS: ICTOTEST (BILI CONFIRMATORY) Negative (Negative)
[2019-04-15 14:54] LABS: ABSOLUTE BASOPHILS 0.1 thou/uL (0.0-0.2); ABSOLUTE EOSINOPHILS 0.4 thou/uL (0.0-0.7); ABSOLUTE LYMPHOCYTES 1.3 thou/uL (0.8-5.3); ABSOLUTE MONOCYTES 1.5 thou/uL (0.0-1.2); ABSOLUTE NEUTROPHILS 13.1 thou/uL (1.6-8.1); BASOPHILS 0.8 %; EOSINOPHILS 2.6 %; HEMATOCRIT 33.2 % (37.0-47.0); LYMPHOCYTES 8.1 %; MCH 28.2 pg (26.0-34.0); MCHC 33.1 g/dL (28.0-37.0); MCV 85.3 fL (80.0-100.0); MONOCYTES 8.9 %; NUCLEATED RBCS 0 /100WBC; PLATELET COUNT* 342 thou/uL (150-400); POLYS 79.6 %; RDW-CV 19.4 % (10.5-14.5); WBC 16.5 thou/uL (4.0-11.0)
[2019-04-15 15:03] LABS: CALCIUM 7.9 mg/dL (8.5-10.1); CREATININE 1.1 mg/dL (0.6-1.3)
[2019-04-15 15:05] LABS: APTT 25.4 Seconds (25.0-31.3); INR 1.2; PROTIME 12.1 Seconds (9.20-11.50)
[2019-04-15] MEDS ORDERED: LISINOPRIL2.5 MG PO (15:11)
[2019-04-15] MEDS ORDERED: KLOR-CON 10 ER10 MEQ PO (15:12)
[2019-04-15] MEDS ORDERED: FUROSEMIDE 20 M20 MG PO (15:12)
[2019-04-15 15:13] LABS: ALBUMIN 2.9 g/dL (3.4-5.0); TOTAL BILIRUBIN 0.9 mg/dL (<0.1-1.0); TOTAL PROTEIN 6.8 g/dL (6.4-8.2)
[2019-04-15] MEDS ORDERED: ONDANSETRON ODT4 MG PO (15:13)
[2019-04-15] MEDS ORDERED: XARELTO15 MG PO (15:14)
[2019-04-15] MEDS ORDERED: CLOTRIMAZOLE-321 GM TOP (15:16)
[2019-04-15 15:19] LABS: URINE WBC-REFLEX >25 Many /HPF (0-5)
[2019-04-15 15:20] LABS: CRYSTALS None Seen /LPF (None Seen); HYALINE CASTS 0-3 Few /LPF (None Seen); MUCUS None Seen strn/LPF (None Seen); SQUAMOUS 4-10 Moderate /LPF (0-3); WBC CLUMPS Few (None Seen)
[2019-04-15 18:45] VITALS: BP 100/64
[2019-04-15 20:00] VITALS: BP 141/61
[2019-04-15 22:27] LABS: INFLUENZA A ANTIGEN Negative (Negative); INFLUENZA B ANTIGEN Negative (Negative)
[2019-04-16] VITALS: BP 135/55
[2019-04-16 03:57] VITALS: BP 132/52
--- NOTE | 2019-04-16 05:13 | NUR ---
ASSUMED PT CARE AT 1905. NURSING ASSESSMENT COMPLETED AT START OF SHIFT. PT AAOX4, FORGETFUL THIS SHIFT. NEGATIVE SEPSIS SCREENING THIS SHIFT. HIGH FALL PRECAUTIONS IN PLACE. SR ON PALLET RECTIFIER. DENIES PAIN THIS SHIFT. HOURLY ROUNDING COMPLETED. CALL LIGHT WITHIN REACH.
[2019-04-16 05:16] LABS: ABSOLUTE BASOPHILS 0.1 thou/uL (0.0-0.2); ABSOLUTE EOSINOPHILS 0.6 thou/uL (0.0-0.7); ABSOLUTE LYMPHOCYTES 1.5 thou/uL (0.8-5.3); ABSOLUTE NEUTROPHILS 6.3 thou/uL (1.6-8.1); BASOPHILS 0.8 %; EOSINOPHILS 6.2 %; HEMATOCRIT 26.9 % (37.0-47.0); LYMPHOCYTES 15.9 %; MCH 28.4 pg (26.0-34.0); MCHC 32.9 g/dL (28.0-37.0); MCV 86.3 fL (80.0-100.0); MONOCYTES 10.5 %; MPV 9.3 fl. (7.2-11.1); NUCLEATED RBCS 0 /100WBC; POLYS 66.6 %; RBC 3.12 mil/uL (4.20-5.00); RDW-CV 19.7 % (10.5-14.5); WBC 9.5 thou/uL (4.0-11.0)
[2019-04-16 05:29] LABS: HEMOGLOBIN 8.9 gm/dL (12.0-15.0); PLATELET COUNT* 259 thou/uL (150-400)
[2019-04-16 05:42] LABS: ALBUMIN 2.2 g/dL (3.4-5.0); CALCIUM 6.9 mg/dL (8.5-10.1); CREATININE 0.9 mg/dL (0.6-1.3); POTASSIUM 3.7 mmol/L (3.5-5.1); TOTAL BILIRUBIN 0.4 mg/dL (<0.1-1.0); TOTAL PROTEIN 5.4 g/dL (6.4-8.2)
[2019-04-16 08:00] VITALS: BP 131/43
--- NOTE | 2019-04-16 10:09 | EKG ---
[place] [address] ELECTROCARDIOGRAM REPORT Name: KOBE KRAUSE Kika Room: [address] ADM IN M.R.#: [id number] Admission: 04/15/19 Attend Phys: Catrina Borrego Discharge: Date of : 31 Report #: [id number] THIS REPORT FOR: //name// [facility] ED Test Date: 2019-04-15 Test Time: 14:30:41 Pat Name: KOBE KRAUSE Department: Room: [facility] Gender: F Pawn Broker: VIKI : 1935 Requested By: Boni Smith Order Number: [id number] MD: Jason Johnson Measurements Intervals [place] Rate: 81 P: 49 WI: 172 QRS: -13 QRSD: 92 T: 16 QT: 458 QTc: 532 Interpretive Statements Sinus rhythm poor r wave progression Prolonged QT interval nonspecific st changes Compared to ECG 03/21/2019 09:13:17 no change Electronically Signed On 04-16-2019 10:09:00 NET MENDER by Jason Johnson [email or web address] <ELECTRONICALLY SIGNED> By: Jason Johnson MD, [facility] 04/16/19 1009 1430 1430 Jason Johnson MD, [facility] /EPI
--- NOTE | 2019-04-16 10:36 | NUR ---
Nutrition: Pt admitted with UTI, no sepsis. Consult received for wt change. Pt usually weighs ~140#. Per [employer], she is cuttenly within her normal wt range (138-151#). She does drink Boost at home on occ. Albumin 2.2. Regular diet ordered. RD will order Ensure for added nutrition intake. Mild risk.
[2019-04-16 12:03] VITALS: BP 102/52
--- NOTE | 2019-04-16 14:38 | NUR ---
Pt working with PT, will attempt to assess later
[2019-04-16 16:43] VITALS: BP 123/45
--- NOTE | 2019-04-16 17:35 | NUR ---
VSS, ASSUMED CARE IN THE AM, ASESSMENT PERFORMED AND CHARTED, FALL PRECAUTIONS IN PLACE AND CALL LIGHT IN REASCH, PT IS A&O3, SHE IS CONFUSED, SHE IS UP WITH ONE AND WALKER, WITH O2, SHE IS TRACING SR ON THE MONITOR, PT DENIES ANY PAIN, PT GOAL IS TO WORK WITH PT WILL FOLLOW WITH PLAN OF CARE,
[2019-04-16 21:54] VITALS: BP 138/47
[2019-04-17] VITALS: BP 139/42
[2019-04-17 04:00] VITALS: BP 137/44
[2019-04-17 05:15] LABS: HEMATOCRIT 25.8 % (37.0-47.0); HEMOGLOBIN 8.7 gm/dL (12.0-15.0); MCH 28.8 pg (26.0-34.0); MCHC 33.6 g/dL (28.0-37.0); MCV 85.9 fL (80.0-100.0); MPV 8.8 fl. (7.2-11.1); RDW-CV 19.5 % (10.5-14.5); WBC 7.3 thou/uL (4.0-11.0)
[2019-04-17 05:25] LABS: CREATININE 0.9 mg/dL (0.6-1.3); POTASSIUM 3.5 mmol/L (3.5-5.1)
--- NOTE | 2019-04-17 05:55 | NUR ---
ASSUMED CARE OF PATIENT AT APPROX 1930. ASSESSMENT COMPLETED AND CHARTED. VSS ON 2 LITERS 02. COMPLAINT OF HEADACHE ADDRESSED WITH TYLENOL. FLUIDS INFUSED ORDERED. PATIENT UP FREQUENTLY TO URINATE THROUGHOUT THE NIGHT. SR ON THE MONITOR. FALLPRECAUTIONS IN PLACE. CALL LIGHT WITHIN REACH. HOURLY ROUNDS COMPLETED. WILL CONTNINUE WITH PLAN OF CARE.
[2019-04-17 07:00] VITALS: BP 143/58
--- NOTE | 2019-04-17 09:20 | NUR ---
INITAL ASSESSMENT COMPLETED CHARTED. VSS. TRACING SR ON MONITOR. PT AKBAR PAIN. PT IS UP TO BR WITH WALKER AND SBA FREQUENTLY. REFER TO COMPUTER CHARTING FOR FURTHER DETAILS. HOURLY ROUNDING AND FALL PRECAUTIONS IN PLACE FOR PT SAFETY. CLWR.
[2019-04-17 12:14] VITALS: BP 129/72
--- NOTE | 2019-04-17 15:00 | NUR ---
Pt is A&O. Pt states that she normally resides at home alone, but stated that she has been staying with her granddtr, Pt is hopeful to be able to return to her granddtr's at or. Pt is current with [facility]. No DME. Pt was recently at [facility] [place], but stated that she didn't think it was helpful. Pt is open to whatever is needed at or. Following.
[2019-04-17 20:00] VITALS: BP 134/44
--- NOTE | 2019-04-17 23:49 | NUR ---
PT TRANSFERED FROM TELE TO RM 318. ALERT AND ORIENTED. STB ASSIST TO BATHROOM. FALL PRECAUTION IN PLACE. RAC IV WITH NS @ 100. VSS ON 2L O2. CPAP @ HS. WILL CONTINUE TO MONITOR.
--- NOTE | 2019-04-18 06:00 | NUR ---
PT ALERT AND ORIENTED. VSS ON 3L. MEDS GIVEN PER EMAR. PT UP TO BATHROOM FREQUENTLY FOR VOIDING THROUGH THE SHIFT. PT STB ASSIST. PT SLEPT OFF AND ON THIS SHIFT. PT DENIES APIN N/V THIS SHIFT. FALL PRECAUTION IN PLACE. CALL LIGHT WITHIN REACH. HOURLY ROUNDINGS MADE. WILL CONTINUE TO MONITOR.
[2019-04-18 07:41] VITALS: BP 134/45
--- NOTE | 2019-04-18 15:38 | NUR ---
SW discussed dc planning with pt granddtr who was in agreement with pt to dc to inpt rehab at [facility] if accepted. Pt and pt granddtr refuse SNF as they had a negative experience at [facility] in the past. Referral/consult in place for inpt rehab. Plan for dc home with granddtr and home health services (current with [facility]) at dc from rehab. SW to continue to follow.
[2019-04-18 15:46] VITALS: BP 127/41
--- NOTE | 2019-04-18 15:59 | NUR ---
ASSESSMENT COMPLETE. PT ALERT AND ORIENTED X4. CONSULT FOR REHAB THIS AFTERNOON. IV FLUIDS DC'D, ZOSYN GIVEN SCHEDULED. PT IS ON 3L PER NC WHICH SHE WEARS AT HOME, CPAP AT HS. VSS. UP STANDBY ASSIST. FALL RISK, BED ALARM ON. SEE ASSESSMENT AND VITALS FOR OTHER DETAILS. CALL LIGHT WITHIN REACH, WILL CONTINUE PLAN OF CARE
[2019-04-18 20:00] VITALS: BP 160/56
--- NOTE | 2019-04-19 06:44 | NUR ---
PROGRESSING TOWARDS GOALS, ASSESSMENT CHARTED, FREQUENT REMINDERS TO USE CALL LIGHT FOR ANY NEEDS OOB, BED ALARM ON FOR SAFETY, UP TO BR WITH SBA AND USE OF WALKER, DENIES DIZZYNESS, OXYGEN 3L PER NC, AFEBRILE, NO ADVERSE EFFECTS IV ABT'S NOTED. SAFETY MAINTAINED.
[2019-04-19 16:00] VITALS: BP 128/40
[2019-04-19 20:00] VITALS: BP 160/56
--- NOTE | 2019-04-20 00:10 | NUR ---
PT C/O DIZZYNESS, REPORTS CONTINUOUS DIZZYNESS, NO CHANGE IN INTENSITY OR DURATION WITH POSITION CHANGES, PT STATES DIZZYNESS HAD BEEN RESOLVED UNTIL THIS NOC, NOTIFED DR NELSON VIA [facility] CARRILLO, NEW ORDERS RECEIVED FOR SCOPALAMINE PATCH CHANGE Q72 HOURS AND ANTOVERT 12.5MG PO [id number] PRN, COMMUNICATED NEW ORDERS WITH PATIENT, SCOPALAMINE PATCH PLACED ORDERED, WILL CONTINUE TO MONITOR.
--- NOTE | 2019-04-20 07:00 | NUR ---
PROGRESSING TOWARD GOALS, DENIES PAIN, PT REPORTS DIZZYNESS RESOLVED AFTER PLACEMENT OF SCOPAMINE PATCH, ASSESSMENT CHARTED, FREQUECY WITH URINATION, PT UP TO BR WITH X1 SBA AND USE OF WALKER TO BR APROX EVERY 30MIN, PT REPORTS FEELING "VERY TIRED", ENCOURAGED REST, CPAP FROM HOME ON ALL NOC, OXYGEN PER NC DECREASED FROM 3L TO 2L PER NC, C/O NAUSEA X1 THIS AM, 5CC CLEAR EMESIS, NAUSEA RESOLVED WITHOUT INTERVENTIONS, EMOTIONAL SUPPORT PROVIDED, USING CALL LIGHT FOR NEEDS MOST OF SHIFT, BED ALARM ON FOR SAFETY, BED REMAINS IN LOW AND LOCKED POSITON.
[2019-04-20 08:25] VITALS: BP 123/45
[2019-04-20 16:00] VITALS: BP 143/43
--- NOTE | 2019-04-20 17:51 | NUR ---
PT A&OX4 VSS. PT UP SBA W/WALKER. GAIT SLOW, BUT STEADY. PT USES CALL LIGHT TO REQUEST ASSISTANCE. SCOPALAMINE PATCHG RE-ORDERED ON NOC SHIFT FOR C/O DIZZINESS. PT ON 2L O2, SAT 98%. DENIES SOA. PT BRIEFED PER PT REQUEST FOR FREQUENCY AND OCASSIONAL STRESS INCONTINENCE. IV TO RAC DC'D BY PT. 20g PLACED TO L HAND/WRIST. LINE PATENT, DRWSSING C/D/I. FLUIDS DC PER DR WOODY. IV ANTIBIOTICS CONTINUED. POSSIBLE DC SUNDAY. PT RESTS IN ROOM WITH CALL LIGHT IN REACH. WILL CONTINUE TO MONITOR.
[2019-04-20 20:00] VITALS: BP 138/55
[2019-04-21 05:12] LABS: CALCIUM 8.2 mg/dL (8.5-10.1); CREATININE 0.9 mg/dL (0.6-1.3); POTASSIUM 3.1 mmol/L (3.5-5.1)
[2019-04-21 07:52] VITALS: BP 136/48
--- NOTE | 2019-04-21 08:25 | NUR ---
SOMEWHAT PROGRESSION TOWARDS GOALS, DENIES PAIN OR DISCOMFORT, FREQUENCY, HESITANTION, AND URGENCY WITH URINATION, UP TO BR WITH SLOW STEADY GAIT AND USE OF WALKER AT LEAST EVERY 30 MIN, MULTPLE "FALSE ALARMS" WITHOUT URIATION, PT REQUESTING USE OF BR WITH USE OF CALL LIGHT AND WITH ALL CARES, PT NOTED TO BE WIPING CARLOS AREA FROM BACK TO FRONT, EDUCATED PROPER TECHNIQUE TO PREVENT UTI, PT STATES HAS "HEARD THAT BEFORE" THEN CONTINUED TO CLEAN CARLOS AREA AFTER USING STOOL FROM BACK TO FRONT, SMALL BM X1, PT DENIES DIZZYNESS THIS SHIFT, NO ADVERE EFFECTS IV ABT'S, SAFETY MAINTAINED.
[2019-04-21 14:34] VITALS: BP 138/55
--- NOTE | 2019-04-21 14:35 | NUR ---
CLAUDIA faxed dc orders, referral, med list to pt choice and current HH agency of [facility]. Pt to dc home with granddtr and grandson support today as pt has improved with therapies and functionally safe in mobility and ADLs to dc home according to therapy and SW discussed with Dr Del Rosario to confirm dc plan.
[2019-04-21] MEDS ORDERED: CIPRO500 M1 PO (14:45)
[2019-04-21 14:47] VITALS: BP 138/55
[2019-04-21 16:13] VITALS: BP 138/55
--- NOTE | 2019-04-21 16:18 | NUR ---
ASSESSMENT COMPLETE. PT DC HOME WITH HOME HEALTH. PATIENT LIVES WITH GRANDDAUGHTER. PRESCRIPTION FOR CIPRO GIVEN AND DC INSTRUCTIONS COMPLETED. GRANDDAUGHTER CHELLY NOTIFIED OF PATIENT DC VIA CAB TO HOME. ALL BELONGINGS SENT WITH PATIENT. SEE ASSESSMENT AND VITALS FOR OTHER DETAILS.
== END 2019-04-21 16:10 | disposition home health service (06) | DRG 871 ==
LOC: M.ERS 14:16 → M.TBA-ER 17:44 → M.2W 17:44 → M.3W 04-17 20:00
PROVIDERS: Family Medicine; ADMIT Family Medicine
PROC: 5A09357 Assistance with Respiratory Ventilation, Less than 24 Consecutive Hours, Continuous Positive Airway Pressure (ICD-10-PCS; principal; 2019-04-21)
DX: A41.9 Sepsis, unspecified organism (principal); E43 Unspecified severe protein-calorie malnutrition; N39.0 Urinary tract infection, site not specified; I10 Essential (primary) hypertension; I25.10 Atherosclerotic heart disease of native coronary artery without angina pectoris; E78.5 Hyperlipidemia, unspecified; E86.0 Dehydration; I95.9 Hypotension, unspecified; R79.1 Abnormal coagulation profile; E87.6 Hypokalemia; D50.9 Iron deficiency anemia, unspecified; E53.8 Deficiency of other specified B group vitamins; I35.1 Nonrheumatic aortic (valve) insufficiency; I07.1 Rheumatic tricuspid insufficiency; I49.9 Cardiac arrhythmia, unspecified; B96.5 Pseudomonas (aeruginosa) (mallei) (pseudomallei) as the cause of diseases classified elsewhere; Z90.710 Acquired absence of both cervix and uterus; Z86.73 Personal history of transient ischemic attack (TIA), and cerebral infarction without residual deficits; Z95.5 Presence of coronary angioplasty implant and graft; I25.2 Old myocardial infarction; Z79.899 Other long term (current) drug therapy; Z68.26 Body mass index [BMI] 26.0-26.9, adult

== ENCOUNTER → 2019-05-09 | Outpatient (CLI) | payer MEDICARE, OTHER ==
[~2019-05-09] MED LIST changes: +CIPRO500 M1 PO; +CLOTRIMAZOLE-321 GM TOP; +FUROSEMIDE 20 M20 MG PO; +KLOR-CON 10 ER10 MEQ PO; +LISINOPRIL2.5 MG PO; +ONDANSETRON ODT4 MG PO; +XARELTO15 MG PO
[2019-05-09 11:09] LABS: ABSOLUTE BASOPHILS 0.1 thou/uL (0.0-0.2); ABSOLUTE EOSINOPHILS 0.5 thou/uL (0.0-0.7); ABSOLUTE LYMPHOCYTES 1.4 thou/uL (0.8-5.3); ABSOLUTE MONOCYTES 0.7 thou/uL (0.0-1.2); ABSOLUTE NEUTROPHILS 3.8 thou/uL (1.6-8.1); BASOPHILS 1.3 %; EOSINOPHILS 7.3 %; HEMATOCRIT 32.2 % (37.0-47.0); HEMOGLOBIN 10.6 gm/dL (12.0-15.0); LYMPHOCYTES 21.5 %; MCH 28.9 pg (26.0-34.0); MCHC 32.9 g/dL (28.0-37.0); MCV 87.9 fL (80.0-100.0); MONOCYTES 10.6 %; MPV 9.5 fl. (7.2-11.1); NUCLEATED RBCS 0 /100WBC; PLATELET COUNT* 323 thou/uL (150-400); POLYS 59.3 %; RBC 3.66 mil/uL (4.20-5.00); RDW-CV 19.2 % (10.5-14.5); WBC 6.4 thou/uL (4.0-11.0)
[2019-05-09 11:18] LABS: ALBUMIN 3.2 g/dL (3.4-5.0); CALCIUM 8.7 mg/dL (8.5-10.1); CREATININE 1.7 mg/dL (0.6-1.3); POTASSIUM 3.6 mmol/L (3.5-5.1); TOTAL BILIRUBIN 0.4 mg/dL (<0.1-1.0); TOTAL PROTEIN 7.2 g/dL (6.4-8.2)
== END ==
LOC: M.LAB 10:33
PROVIDERS: Nurse Practitioner
DX: K92.1 Melena (principal); E87.6 Hypokalemia

== ENCOUNTER → 2019-08-12 | Outpatient (CLI) | payer MEDICARE, OTHER | LOC: M.ULTRA 09:09 | DX: N17.9 Acute kidney failure, unspecified (principal); J90 Pleural effusion, not elsewhere classified ==

== ENCOUNTER 2020-09-11 10:46 | Emergency (ER) | payer MEDICARE, OTHER ==
[~2020-09-11] VITALS: Ht 167.6 cm; Wt 54.4 kg
[2020-09-11 11:40] LABS: ABSOLUTE MONOCYTES 0.6 thou/uL (0.0-1.2); ABSOLUTE NEUTROPHILS 6.1 thou/uL (1.6-8.1); BASOPHILS 0.3 %; EOSINOPHILS 0.5 %; HEMATOCRIT 42.9 % (37.0-47.0); HEMOGLOBIN 14.7 gm/dL (12.0-15.0); LYMPHOCYTES 12.3 %; MCH 30.4 pg (26.0-34.0); MCHC 34.3 g/dL (28.0-37.0); MCV 88.5 fL (80.0-100.0); MPV 9.1 fl. (7.2-11.1); NUCLEATED RBCS 0 /100WBC; PLATELET COUNT* 195 thou/uL (150-400); POLYS 78.9 %; RBC 4.85 mil/uL (4.20-5.00); RDW-CV 15.9 % (10.5-14.5); WBC 7.8 thou/uL (4.0-11.0)
[2020-09-11 11:47] LABS: CALCIUM 8.7 mg/dL (8.5-10.1); CREATININE 0.8 mg/dL (0.6-1.3); POTASSIUM 3.7 mmol/L (3.5-5.1)
[2020-09-11 11:52] LABS: ALBUMIN 3.7 g/dL (3.4-5.0); TOTAL BILIRUBIN 0.8 mg/dL (<0.1-1.0)
[2020-09-11 13:36] LABS: URINE BILIRUBIN NEGATIVE (Negative); URINE BLOOD 2+ (Negative); URINE CLARITY CLEAR; URINE COLOR YELLOW; URINE GLUCOSE-RANDOM NEGATIVE (Negative); URINE KETONES 1+ (Negative); URINE LEUKOCYTES-REFLEX 1+ (Negative); URINE PROTEIN NEGATIVE (Negative); URINE SPECIFIC GRAVITY 1.015 (1.005-1.030); URINE UROBILINOGEN 0.2 E.U./dl (0.2-1.0)
[2020-09-11 13:51] LABS: URINE NITRITE-REFLEX POSITIVE (Negative)
[2020-09-11] MEDS ORDERED: CEPHALEXIN500 MG PO (14:05)
[2020-09-11 14:14] LABS: MUCUS 0-3 Light strn/LPF (None Seen); SQUAMOUS 0-3 Few /LPF (0-3)
[2020-09-11 14:16] LABS: BACTERIA-REFLEX >30 Many /HPF (None Seen); CASTS None Seen /LPF (None Seen); CRYSTALS None Seen /LPF (None Seen); URINE RBC 3-10 Few /HPF (0-2); URINE WBC-REFLEX 6-15 Few /HPF (0-5)
[2020-09-11 14:26] VITALS: BP 180/72
--- NOTE | 2020-09-12 10:40 | EKG ---
[place] [address] ELECTROCARDIOGRAM REPORT Name: KOBE KRAUSE [facility]#: [id number] Admission: 09/11/20 Attend Phys: Discharge: 09/11/20 Date of : 31 Date of Service: 09/11/20 1132 Report #: [id number] THIS REPORT FOR: //name// [facility] ED Test Date: 2020-09-11 Test Time: 11:32:55 Pat Name: KOBE KRAUSE Department: Room: Gender: F Director Human Services: [facility] : 1935 Requested By: Jeannine Noel Order Number: [id number] MD: Jason Johnson Measurements Intervals [place] Rate: 77 P: 76 WI: 219 QRS: 26 QRSD: 110 T: 147 QT: 355 QTc: 402 Interpretive Statements Sinus rhythm artifact noted Probable LVH with secondary repol abnrm Compared to ECG 04/15/2019 14:30:41 Poor R-wave progression no longer present Prolonged QT interval no longer present Electronically Signed On 09-12-2020 10:40:37 CDT by Jason Johnson [email or web address] <ELECTRONICALLY SIGNED> By: Jason Johnson MD, [facility] 09/12/20 1040 1132 1132 Jason Johnson MD, [facility] /EPI
== END 2020-09-11 14:27 | disposition home or self-care (01) ==
LOC: M.ERS 10:46
PROVIDERS: Nurse Practitioner Family
DX: S70.02XA Contusion of left hip, initial encounter (principal); N39.0 Urinary tract infection, site not specified; M79.605 Pain in left leg; R42 Dizziness and giddiness; I10 Essential (primary) hypertension; Z90.710 Acquired absence of both cervix and uterus; Z86.73 Personal history of transient ischemic attack (TIA), and cerebral infarction without residual deficits; W18.39XA Other fall on same level, initial encounter; Y93.89 Activity, other specified; Y92.002 Bathroom of unspecified non-institutional (private) residence as the place of occurrence of the external cause; Y99.8 Other external cause status